=== PATIENT | female | born 1945 | race Caucasian/White ===

== ENCOUNTER 2024-11-18 10:37 | Outpatient (AMB) | payer OTHER, SELFPAY ==
--- NOTE | 2024-11-18 10:40 | MHC.PC.OV ---
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 Had a tick bite on left thigh in [place] 4 days ago. Went to urgent care and was put on a two day course of Doxycycline. Inspector Casing Required: No Allergies aromacin Allergy (Unknown, Uncoded 11/18/24 10:44) affects liver function Medication List - Last Reconciled 11/18/24 by Perla Nuñez PA-C clobetasol topical hydroxyzine HCl mg PO venlafaxine ER 75 mg PO DAILY venlafaxine ER 37.5 mg PO DAILY Tobacco use date assessed: 11/18/24 Fall risk assessment: 1 Fall in past year (fell 5 months ago) Last assessed Fall Risk: 11/18/24 Dental Screening Dental Screen Date: 11/18/24 Did you have a dental visit in the last 12 months?: Yes Did you have a dental problem in the last 6 months where you did not have access to dental care?: No Was dental information given to patient?: Patient has dentist HPI 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 She is transferring from [place]. She reports a significant past medical history of anxiety, depression, history of breast cancer, osteoporosis, hyperlipidemia, OAB, psoriasis, history of BCC CV: Blood pressure today in the office is 122/76. She is diet controlled with her cholesterol. Heme/Onc: History of right breast cancer s/p lumpectomy and radiation 1997 (took tamoxifen) and recurrence in left breast in 2014 s/p lumpectomy and radiation. She is BRCA negative. She follows with Dr. Kirkland but has not seen her in 2 years. She was doing annual MRIs and mammograms. She states that she has not had an MRI in about a year and a half. She states that she was supposed to follow up with her breast surgeon but did not and thought that it was an a big deal but maybe now would like to get back to doing MRIs. She has not noticed any breast changes. Endo: Has osteoporosis with a history of a T12 compression fracture. Never took medication. States that she would be open to talking with an sports physician regarding treatment. She is not sure if that is something she wants to do. Psych: On venlafaxine 112.5 mg and hydroxyzine 10 mg as needed. She says it feels like the venlafaxine is somewhat helpful but it could be better. She does suffer from a lot of generalized anxiety and thinks that she could increase the dosage. In the past she tried sertraline but found this ineffective. No SI/HI. Derm: Follows with [facility]. On clobetasol as needed. -tick bite 11/12 noted the tick on left inner thigh. She states that it was imbedded and she knows that it was on for longer than 24 hours. She pulled it out with a pair of tweezers with her 's assistance. She then went to urgent care and [place] and was prescribed doxycycline 200 mg. She states that over the weekend on Saturday she noticed that the area surrounding the bite became red and tender. She states that it is circular and it seems like it has grown in size. She says that there is a center scab but it is a little uncomfortable she pushes. No fevers or chills. No weakness, numbness or tingling. No swollen joints. MSK: She does complain today of bilateral hand pain and arthritis. She states it looks like she has arthritis in her knuckles and at times her hands feel stiff. She arthritis. A few years ago she went to the arthritis treatment center she says that they took pictures of her hands but they did not tell her what the results were. She states that they made it sound like she possibly does not have psoriatic arthritis but when she went to the urgent care recently for the tick bite the practitioner asked her about her psoriatic arthritis. She just wants to make sure that there are no significant changes to her hands. Colonoscopy: Due in 2026 Mammo: Due in February 2025 Band Manager: states it has been years Bone density: Due this year. Family history: Has a history of colon cancer. [facility] Medical History (Updated 11/18/24 @ 14:06 by Perla Nuñez PA-C) History of breast cancer Family History (Updated 11/18/24 @ 10:56 by Estelle Humphrey CMA) Paternal Aunt Alcoholism Other FH: mental illness Social History (Updated 11/18/24 @ 10:56 by Estelle Humphrey [facility]) Housing: House Alcohol intake: current Patient Tobacco Use Status: Former Tobacco user (only smoked for a week) e-Cigarette/Vaping Use: Never Used service: No Cognitive needs: Yes (forgetful) Hearing needs: No Vision needs: Yes (glasses) Questionnaire PHQ-9 Over the last 2 weeks, how often have you been bothered by any of the following problems? 1. Little interest or pleasure in doing things: more than half the days 2. Feeling down, depressed, or hopeless: more than half the days 3. Trouble falling or staying asleep, or sleeping too much: not at all 4. Feeling tired or having little energy: not at all 5. Poor appetite or overeating: not at all 6. Feeling bad about yourself - or that you are a failure or have let yourself or your family down: more than half the days 7. Trouble concentrating on things, such as reading the newspaper or watching television: not at all 8. Moving or speaking so slowly that other people could have noticed. Or the opposite - being so fidgety or restless that you have been moving around a lot more than usual: not at all 9. Thoughts that you would be better off or of hurting yourself in some way: not at all Total score: 6 Depression Screening Interpretation: Positive Depression Screening Follow-up: Existing condition, In treatment and Follow-up Visit Requested Depression Screening Done: Yes 36898 - PHQ-9 Billing: Yes Source: Developed by Drs. Iban Briceño, Keyana Le, Abhilash Anaya and colleagues, with an educational michelle from [employer]. Thrive Questionnaire Date Thrive assessed: 11/18/24 I am a: Patient What is your living situation today?: I have a steady place to live Within the past 12 months, did the food you bought not last and you didn't have the money to get more?: Never true Within the past 12 months, did you worry whether your food would run out before you got money to buy more?: Never true Do you have trouble paying for medicines?: No Do you have trouble getting transportation to medical appointments?: No Do you have trouble paying your heating and electricity bill?: No Do you have trouble taking care of your child, family member or friend?: No Do you have trouble with day-to-day activities such as bathing, preparing meals, shopping, managing finances, etc.?: No Are you currently unemployed and looking for a job?: No Are you interested in more education?: Yes Please select the resources that you would like help with: Education Currently or been in a relationship where the following occur: No concerns reported THRIVE Score: 0 AUDIT C Alcohol Use Questionnaire (AUDIT-C) 1. How often do you have a drink containing alcohol?: 2-3 times a week 2. How many drinks containing alcohol do you have on a typical day when you are drinking?: 1 or 2 3. How often do you have six or more drinks on one occasion?: Never Total Score: 3 SHERICE-7 AMB Questionnaire SHERICE-7 Date SHERICE - 7 assessed: 11/18/24 Feeling nervous, anxious, or on edge: 2 = More than half the days Not being able to stop or control worryin = More than half the days Worrying too much about different things: 1 = Several days Trouble relaxin = Several days Being so restless that it is hard to sit still: 1 = Several days Becoming easily annoyed or irritable: 1 = Several days Feeling afraid as if something awful might happen: 1 = Several days Total SHERICE-7 score (0-4 normal; 5-9 mild; 10-14 moderate; 15-21 severe): 9 Source: Developed by Drs. Iban Briceño, Keyana Le, Abhilash Anaya and colleagues, with an educational michelle from [employer]. SHERICE-7 Assessment Billing SHERICE-7 Assessment Tool: SHERICE-7 Assessment 35132 Physical exam (Primary Care) Vital Signs: Last Vital Signs Temp 98.4 F 11/18/24 10:48 Pulse 98 11/18/24 10:48 Resp 14 11/18/24 10:48 BP 122/76 11/18/24 10:48 Pulse Ox 98 11/18/24 10:48 Oxygen Delivery Method Room Air 11/18/24 10:48 BMI result Body Mass Index 24.5 Tobacco/Smoking Status: Tobacco use Status Tobacco use date assessed 11/18/24 11/18/24 10:48 Patient Tobacco Use Status Former Tobacco user (only 11/18/24 10:56 smoked for a week) e-Cigarette/Vaping Use Never Used 11/18/24 10:56 PHQ-9: PHQ-9 Score PHQ-9: Total score 6 11/18/24 10:49 Depression Screening Interpretation: Positive Depression Screening Follow-up: Existing condition, In treatment and Follow-up Visit Requested Thrive Assessment: Date of Thrive Assessment Date Thrive assessed 11/18/24 11/18/24 10:56 Currently or been in a relationship where the following occur: No concerns reported Const Orientation/consciousness: patient oriented x3 HENMT Ears: hearing grossly normal bilaterally Neck Thyroid: Thyroid normal Lymphatic: no lymphadenopathy noted Resp Auscultation: clear to auscultation bilaterally Cardio Rate: regular rate Rhythm: regular rhythm Heart sounds: S1 normal heart sound present and S2 normal heart sound present GI Inspection: Yes normal to inspection Palpation (GI): Soft to palpation and Other GI palpation findings present (nontender, no cva tenderness) Auscultation: normoactive bowel sounds Rectal Exam - Female: deferred Skin Other: There is a 4 cm x 3 cm oval, erythematous rash with a scab in the center noted on her left medial upper leg. It is slightly tender to palpation. It is well demarcated. Neuro General: patient oriented x3, gait normal and no focal motor deficits Coding Level of Care Code New Pt Level 4 (13592) Complex EM visit Add On G2211 Diagnoses Major depression, recurrent, chronic F33.9 Generalized anxiety disorder F41.1 Osteoporosis M81.0 HLD (hyperlipidemia) E78.5 History of bilateral breast cancer Z85.3 Tick bite of left thigh with infection S70.362A; L08.9; W57.XXXA Psoriasis L40.9 Bilateral hand pain M79.641; M79.642 Additional Codes SHERICE-7 Assessment Billing - SHERICE-7 Assessment Tool: SHERICE-7 Assessment 27045 ([id number]) PHQ-9 - 98410 - PHQ-9 Billing: Yes ([id number]) Assessment & Plan Assessment & Plan (1) Major depression, recurrent, chronic: Code(s): F33.9 - Major depressive disorder, recurrent, unspecified Category: Medical Plan: Increase venlafaxine to 150 mg daily. Return in a couple months to be reassessed. She will call me sooner if anything worsens or changes regarding anxiety or depression. (2) Generalized anxiety disorder: Code(s): F41.1 - Generalized anxiety disorder Category: Medical Plan: As above. (3) Osteoporosis: Code(s): M81.0 - Age-related osteoporosis without current pathological fracture Category: Medical Plan: Bone density ordered (4) HLD (hyperlipidemia): Code(s): E78.5 - Hyperlipidemia, unspecified Category: Medical Plan: Lipids ordered. We will follow up pending test results (5) History of bilateral breast cancer: Code(s): Z85.3 - Personal history of malignant neoplasm of breast Category: Medical Plan: Breast MRI ordered. Mammogram ordered. She prefers these to be done at [place] given that this is where she was previously going. (6) Tick bite of left thigh with infection: Code(s): S70.362A - Insect bite (nonvenomous), left thigh, initial encounter; L08.9 - Local infection of the skin and subcutaneous tissue, unspecified; W57.XXXA - Bitten or stung by nonvenomous insect and other nonvenomous arthropods, initial encounter Category: Medical Plan: Doxycycline x2 weeks. Discussed risks and benefits and adverse effects of this medication including GI upset, photosensitivity rash in yeast infection. She will contact me if anything worsens or changes. She did take a picture today of the tick bite on her leg and we did measure this. She will let me know if it changes in size or fails to respond. (7) Psoriasis: Code(s): L40.9 - Psoriasis, unspecified Category: Medical Plan: Follows with new [facility]. Previously this was managed with by her PCP. She needs a refill of the clobetasol cream in the next couple of months and states that she will contact me with her dosage. (8) Bilateral hand pain: Code(s): M79.641 - Pain in right hand; M79.642 - Pain in left hand Category: Medical Plan: X-rays ordered. Plan xrays of hands at [place] [facility] and mammogram will be done at [facility] (if insurance authorizes) they will call to book you bone density they will call you to schedule labs- no appointment needed, come in around mid January to complete, they open at 7:30 Start doxy for tick bite, call me if leg gets worse increase venlafaxine to 150 mg short term follow up end of summer Orders: Orders Complete Blood Count Auto Diff Today E78.5 - Hyperlipidemia, unspecified, F33.9 - Major depressive disorder, recurrent, unspecified, F41.1 - Generalized anxiety disorder, M81.0 - Age-related osteoporosis without current pathological fracture, Z85.3 - Personal history of malignant neoplasm of breast Comprehensive [place]. Panel Fast Today E78.5 - Hyperlipidemia, unspecified, F33.9 - Major depressive disorder, recurrent, unspecified, F41.1 - Generalized anxiety disorder, M81.0 - Age-related osteoporosis without current pathological fracture, Z85.3 - Personal history of malignant neoplasm of breast TSH reflex Free T4 Today E78.5 - Hyperlipidemia, unspecified, F33.9 - Major depressive disorder, recurrent, unspecified, F41.1 - Generalized anxiety disorder, M81.0 - Age-related osteoporosis without current pathological fracture, Z85.3 - Personal history of malignant neoplasm of breast Hemoglobin A1c Today E78.5 - Hyperlipidemia, unspecified, F33.9 - Major depressive disorder, recurrent, unspecified, F41.1 - Generalized anxiety disorder, M81.0 - Age-related osteoporosis without current pathological fracture, R73.01 - Impaired fasting glucose, Z85.3 - Personal history of malignant neoplasm of breast UA CC w/rflx Micro + Cult Today E78.5 - Hyperlipidemia, unspecified, F33.9 - Major depressive disorder, recurrent, unspecified, F41.1 - Generalized anxiety disorder, M81.0 - Age-related osteoporosis without current pathological fracture, Z13.220 - Encounter for screening for lipoid disorders, Z85.3 - Personal history of malignant neoplasm of breast Vitamin D 25-OH Total Today E78.5 - Hyperlipidemia, unspecified, F33.9 - Major depressive disorder, recurrent, unspecified, F41.1 - Generalized anxiety disorder, M81.0 - Age-related osteoporosis without current pathological fracture, Z85.3 - Personal history of malignant neoplasm of breast XR DEXA axial skeleton Today M81.0 - Age-related osteoporosis without current pathological fracture MR breast BI wo con Today Z85.3 - Personal history of malignant neoplasm of breast MM screening mammo BI Today Z12.31 - Encounter for screening mammogram for malignant neoplasm of breast, Z85.3 - Personal history of malignant neoplasm of breast Lipid Panel Today E78.5 - Hyperlipidemia, unspecified, F33.9 - Major depressive disorder, recurrent, unspecified, F41.1 - Generalized anxiety disorder, M81.0 - Age-related osteoporosis without current pathological fracture, Z85.3 - Personal history of malignant neoplasm of breast Microalbumin, Random (w Creat) Today E78.5 - Hyperlipidemia, unspecified, F33.9 - Major depressive disorder, recurrent, unspecified, F41.1 - Generalized anxiety disorder, M81.0 - Age-related osteoporosis without current pathological fracture, Z85.3 - Personal history of malignant neoplasm of breast Lyme IgG/IgM w/reflex to WB Today L08.9 - Local infection of the skin and subcutaneous tissue, unspecified, S70.362A - Insect bite (nonvenomous), left thigh, initial encounter, W57.XXXA - Bitten or stung by nonvenomous insect and other nonvenomous arthropods, initial encounter XR Hand Bilat min 3v Today M79.641 - Pain in right hand, M79.642 - Pain in left hand Medications: New doxycycline hyclate 100 mg PO BID 28 tabs 0RF venlafaxine ER 150 mg PO DAILY 90 caps 3RF
[2024-11-18 10:48] VITALS: BP 122/76; PULSE 98; RESP 14; TEMP 36.9; O2SAT 98; BMI 24.5
--- OUTSIDE RECORDS SUMMARY | 2024-11-18 12:05 | XMS_ITS | Clinical Summary ---
Author Organization [facility] Address [address] [place] [address] Care Team Providers Care Studio Couch Frame Builder Name Role Phone Unavailable Primary Care Provider Unavailabl e Surgical History Surgery Date Site/Laterality Comments OTHER SURGICAL HISTORY 1999 PROCEDURE: HISTORICAL CA BASAL CELL; COMMENT: chest wall CATARACT EXTRACTION 08/2012 PROCEDURE: HISTORICAL CATARACT REMOVAL OTHER SURGICAL HISTORY 1997 PROCEDURE: HISTORICAL D&C COLONOSCOPY 01/22/2000 PROCEDURE: HISTORICAL COLONOSCOPY; COMMENT: Dr. Castro; negative exam. COLONOSCOPY 07/18/2009 PROCEDURE: HISTORICAL COLONOSCOPY; COMMENT: Normal COLONOSCOPY 02/21/2017 PROCEDURE: HISTORICAL COLONOSCOPY; COMMENT: no polyps BREAST BIOPSY 01/30/2017 Right PROCEDURE: BX BREAST; PERC NEEDLE CORE W/IMAG GUID BREAST BIOPSY 01/25/2015 Right PROCEDURE: BX BREAST; PERC NEEDLE CORE W/IMAG GUID; COMMENT: DCIS MRI bx BREAST BIOPSY 1997 Left PROCEDURE: WI BX BREAST W/DEVICE 1ST LESION ULTRASOUND GUID; COMMENT: ca BREAST LUMPECTOMY 1997, 2003 benign biopsy Bilateral PROCEDURE: HISTORICAL BREAST LUMPECTOMY; COMMENT: 1997 ORIGINAL BREAST CAnCER TREATMENT left rt lumpectomy w rt 2015 BREAST LUMPECTOMY 02/17/2015 Right PROCEDURE: HISTORICAL BREAST LUMPECTOMY; COMMENT: DCIS COLONOSCOPY 03/02/2020 PROCEDURE: HISTORICAL COLONOSCOPY; COMMENT: Diverticulosis; no polyps. Repeat in 5 years. Medical History Medical History Date Comments Backache, unspecified DX:Backach e, unspecified; COMMENT: scoliosis Other psoriasis DX:Other psorias is Closed fracture of other bon e of wrist DX:Closed fracture of other bone of wrist; COMMENT: right/left Herpes simplex with unspecif ied complication DX:Herpes simplex with unspe cified complication; COMMENT: Genital Family history of malignant neoplasm of gastrointestinal tract 11/16/2008 DX:Family history of maligna nt neoplasm of gastrointestinal tract Historical Medical DX 03/26/2008 DX:Basal c ell carcinoma of the skin Bunion 03/26/2011 DX:Bunion Anxiety state, unspecified DX:An xiety state, unspecified; COMMENT: fluoxitine 20 mg Cataract 10/11/2011 DX:Cataract Ankle fracture, right 1999 DX:Ankle f racture, right Herniated disc DX:Herniated dis c; COMMENT: pt thinks L5 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 History of breast cancer 10/25/2015 DX:Hist ory of breast cancer History of basal cell carcin deangelo of skin 03/26/2008 DX:History of basal cell car cinoma of skin Malignant neoplasm of breast (female), unspecified site 1997 DX:Malignant neoplasm of br east (female), unspecified site; COMMENT: left side Malignant melanoma of breast (CMS/HCC V24, CMS/HCC V28) 2014 DX:Malignant melanoma of louisa ast ([facility]); COMMENT: rt Osteoporosis DX:Osteoporosis Diarrhea DX:Diarrhea Fecal incontinence DX:Fecal inco ntinence Fecal urgency DX:Fecal urgency Family history of colon canc er in mother DX:Family history of colon c ancer in mother Covid DX:COVID Colitis DX:Colitis Fecal urgency DX:Fecal urgency Sore throat DX:Sore throat History of colitis DX:History of colitis Family History Medical History Relation Name Comments Prostate cancer Brother 1 Jose Foster Arthritis Brother 2 Iban Foster osteo Prostate cancer Brother 2 Iban Foster Heart attack Father Prostate cancer Father Alzheimer's disease Mother Colon cancer Mother dx age 70 Other: Diabetes type 2 Mother Breast cancer Mother's side m cousin 30s maternal firs t cousin Pancreatic cancer Paternal Grandfather Prostate cancer Paternal Grandfather Alzheimer's disease Paternal Grandmother at 93 Ovarian cancer Neg Hx Uterine cancer Neg Hx Relation Name Status Comments Brother 1 Jose Foster (Age 70) Brother 2 Iban Foster Alive hip surgery Father (Age 81) Sepsis, he art problem, prostrate cancer Maternal Grandfather [employer] g[employer] g Maternal Grandmother [employer] gonzales g Mother dementia 85, co rubén cancer, dm Mother's side m cousin 30s Other Paternal Grandfather (Age 60s) H eart disease, Pancreatic cancer Paternal Grandmother (Age 90s) d ementia Sister Alive Knee replacemen t; arthitits; hip replacement Son Alive Jeff - Health y x seborrhea and anxiety Social History Tobacco Use Types Packs/Day Years Used Date Smoking Tobacco: Never Smokeless Tobacco: Never Alcohol Use Standard Drinks/Week Comments Yes 1 (1 standard drink = 0.6 oz pur e alcohol) Comments Unknown Sex and Gender Information Value Date Recorded Sex Assigned at Not on file Legal Sex Female 6:55 PM EST Gender Identity Not on file Sexual Orientation Not on file Obstetrics History Last Filed Vital Signs Vital Sign Reading Time Taken Comments Blood Pressure 120/82 04/09/2024 9:30 AM EDT Pulse 80 04/09/2024 9:30 AM EDT Temperature - - Respiratory Rate - - Oxygen Saturation - - Inhaled Oxygen Concentration - - Weight 62.9 kg (138 lb 9.6 oz) 04/09/2024 9:30 A M EDT Height 161.3 cm (5' 3.5 ) 04/09/2024 9:30 AM EDT Body Mass Index 24.17 04/09/2024 9:30 AM EDT Plan of Treatment Upcoming Encounters Date Type Department Care Team (Late st Contact Info) Description 03/18/2025 9:00 AM EDT Appointment Radiology Department [address] [phone] Health Maintenance Due Date Last Done Comments RSV Immunization Adult Patients (1 - 1-dose 75+ series) 2021 Cholesterol Screening (Lipid Panel) 05/19/2022 Colorectal Cancer Screening: Colonoscopy 05/19/2022 Depression Screening 05/19/2022 Falls Risk Assessment 05/19/2022 Hepatitis C Screening 05/19/2022 Social Influencers of Health Screening 05/19/2022 COVID-19 Vaccine ( season) 2024 02/28/2024, 02/28/2022, 09/22/2021, Additional history exists Influenza Vaccine (Season Ended) 2025 03/06/2023, 02/28/2022, 02/22/2021, Additional history exists DTaP,Tdap,and Td Vaccines (4 - Td or Tdap) 01/05/2030 01/06/2020, 09/13/2009, 08/20/2000 Osteoporosis Screening (Bone Density Screening) 10/21/2033 10/22/2023, 10/22/2023, 08/16/2022, Additional history exists Pneumococcal Vaccine: 50+ Years Completed 10/25/2015, 05/12/2012 Zoster Vaccines Completed 12/07/2020, 09/09, 01/17/2012 HIB Vaccines Aged Out No longer eligi ble based on patient's age to complete this topic HPV Vaccines Aged Out No longer eligi ble based on patient's age to complete this topic Hepatitis A Vaccines Aged Out No long er eligible based on patient's age to complete this topic Hepatitis B Vaccines Aged Out No long er eligible based on patient's age to complete this topic IPV Vaccines Aged Out No longer eligi ble based on patient's age to complete this topic MMR Vaccines Aged Out No longer eligi ble based on patient's age to complete this topic Meningococcal ACWY Vaccine Aged Out N o longer eligible based on patient's age to complete this topic Meningococcal B Vaccine Aged Out No l onger eligible based on patient's age to complete this topic RSV Immunization Patients Under 20 months Aged Out No longer eligible based on patient's age to complete this topic Varicella Vaccines Aged Out No longer eligible based on patient's age to complete this topic Procedures Procedure Name Priority Date/Time Associated Diagnosis Comments DXA BONE DENSITY STUDY 1+ SITS AXIAL SKEL Routine 10/22/2023 10:07 AM EDT Encounter for general adult medical examination without abnormal findings from Last 3 Months or Most Recently Relevant to Health Maintenance Results * DXA BONE DENSITY STUDY 1+ SITS AXIAL SKEL (10/22/2023 10:07 AM EDT) Anatomical Region Laterality Modality Bone Densitometr y 09/04/2023 11:4 1 AM EDT Narrative 10/23/2023 9:10 AM EDT BONE DENSITY ? Lumbar Spine T-score is -2.2 ?? (SD relative to 20-29 y/o adult) Z-score is -0.3 ??(SD relative to age matched peers) This is consistent with osteopeniaby criteria defined by the WHO. Left Hip T-score is -2.5 Z-score is -0.3 This is consistent with osteoporosis by criteria defined by the WHO. Comparison exam(s): no statistically significant change in the bone density of the hip when compared to most recent bone density examination ?? Confidence level is +/-95%. Impression: Based on the World Health Organization criteria, Lena Gordon should be classified as having osteoporosis. The [facility] Department of Internal Medicine recommends using National Osteoporosis Foundation (NOF) guidelines in treatment decisions related to osteoporosis. NOF guidelines suggest considering treatment for postmenopausal women and men aged 50 or older presenting with the following: History of hip or vertebral fracture. T-score less than or equal to -2.5 (DXA) at the femoral neck, total hip, or spine, after appropriate evaluation to exclude secondary causes. Low bone mass (T-score between -1.0 and -2.5 at the femoral neck or spine) AND a 10-year probability of a hip fracture greater than or equal to 3% OR a 10-year probability of a major osteoporosis-related fracture greater than or equal to 20% based on the [place]-adapted WHO algorithm Please note that all treatment decisions require clinical judgment and consideration of individual patient factors, including patient preferences, co-morbidities, previous drug use, risk factors not captured in the FRAX model (e.g., frailty, falls, vitamin D deficiency, increased bone turnover, interval significant decline in bone density) and possible under- or over-estimation of fracture risk by FRAX. Procedure Note Sapna Nelson MD - 01/27/2024 BONE DENSITY Lumbar Spine T-score is -2.2 (SD relative to 20-29 y/o adult) Z-score is -0.3 (SD relative to age matched peers) This is consistent with osteopeniaby criteria defined by the WHO. Left Hip T-score is -2.5 Z-score is -0.3 This is consistent with osteoporosis by criteria defined by the WHO. Comparison exam(s): no statistically significant change in the bonedensity of the hip when compared to most recent bone density examination Confidence level is +/-95%. Impression: Based on the World Health Organization criteria, Lena Gordon should beclassified as having osteoporosis. The [facility] Department of Internal Medicine recommendsusing National Osteoporosis Foundation (NOF) guidelines in treatmentdecisions related to osteoporosis. NOF guidelines suggest consideringtreatment for postmenopausal women and men aged 50 or older presentingwith the following: History of hip or vertebral fracture. T-score less than or equal to -2.5 (DXA) at the femoral neck, total hip,or spine, after appropriate evaluation to exclude secondary causes. Low bone mass (T-score between -1.0 and -2.5 at the femoral neck or spine)AND a 10-year probability of a hip fracture greater than or equal to 3% ORa 10-year probability of a major osteoporosis-related fracture greaterthan or equal to 20% based on the [place]-adapted WHO algorithm Please note that all treatment decisions require clinical judgment andconsideration of individual patient factors, including patientpreferences, co-morbidities, previous drug use, risk factors not capturedin the FRAX model (e.g., frailty, falls, vitamin D deficiency, increasedbone turnover, interval significant decline in bone density) and possibleunder- or over-estimation of fracture risk by FRAX. Nahed Lopez DO IMG DXA PROCEDURES Final Result from Last 3 Months or Most Recently Relevant to Health Maintenance
== END 2024-11-18 11:45 | disposition home or self-care (01) ==
LOC: HO.HMCFM 10:38
PROVIDERS: PCP Physician Assistant; Visit Provider Physician Assistant
DX: F33.9 Major depressive disorder, recurrent, unspecified (principal); F41.1 Generalized anxiety disorder; M81.0 Age-related osteoporosis without current pathological fracture; E78.5 Hyperlipidemia, unspecified; Z85.3 Personal history of malignant neoplasm of breast; S70.362A Insect bite (nonvenomous), left thigh, initial encounter; L08.9 Local infection of the skin and subcutaneous tissue, unspecified; W57.XXXA Bitten or stung by nonvenomous insect and other nonvenomous arthropods, initial encounter; L40.9 Psoriasis, unspecified; M79.641 Pain in right hand; M79.642 Pain in left hand

== ENCOUNTER → 2024-11-18 10:37 | Outpatient (BNVA) | payer OTHER, SELFPAY | PROVIDERS: PCP Physician Assistant; Visit Provider Physician Assistant | DX: M81.0 Age-related osteoporosis without current pathological fracture (principal); E78.5 Hyperlipidemia, unspecified; N32.81 Overactive bladder; L40.9 Psoriasis, unspecified; M79.642 Pain in left hand; M79.641 Pain in right hand; F33.9 Major depressive disorder, recurrent, unspecified; F41.1 Generalized anxiety disorder; Z85.3 Personal history of malignant neoplasm of breast; S70.362A Insect bite (nonvenomous), left thigh, initial encounter; L08.9 Local infection of the skin and subcutaneous tissue, unspecified; W57.XXXA Bitten or stung by nonvenomous insect and other nonvenomous arthropods, initial encounter; Y93.9 Activity, unspecified; Y92.9 Unspecified place or not applicable; Y99.9 Unspecified external cause status | CPT/HCPCS: 96127 ==

== ENCOUNTER 2024-11-25 08:09 | Outpatient (REF) | payer OTHER, SELFPAY ==
--- OUTSIDE RECORDS SUMMARY | 2024-11-25 08:23 | XMS_ITS | Clinical Summary ---
Author Organization [email or web address] [facility] Address [address] [place] [address] Care Team Providers Care Regrinder Operator Name Role Phone Lena Tracey MD Primary Care Provider Surgical History Surgery Date Site/Laterality Comments OTHER [...] MRI bx BREAST BIOPSY 1997 Left PROCEDURE: [place] BX BREAST W/DEVICE 1ST LESION ULTRASOUND GUID; [...] V28) 2014 DX:Malignant melanoma of louisa ast ([facility] COMMENT: rt Osteoporosis DX:Osteoporosis Diarrhea DX:Diarrhea Fecal [...] art problem, prostrate cancer Maternal Grandfather [employer] Maternal Grandmother [employer] Mother dementia 85, co rubén cancer, dm [...] 03/18/2025 9:00 AM EDT Appointment Radiology Department [address] [phone] Health Maintenance Due Date Last Done Comments [...] Narrative 10/23/2023 9:10 AM EDT BONE DENSITY Lumbar Spine T-score is -2.2 [...] should be classified as having osteoporosis. The [facility] Department of Internal Medicine recommends using National [...] Gordon should beclassified as having osteoporosis. The [facility] Department of Internal Medicine recommendsusing National Osteoporosis [...] fracture risk by FRAX. Nahed Lopez DO [facility] DXA PROCEDURES Final Result from Last 3 Months or Most Recently Relevant to Health Maintenance Care Teams Regrinder Operator Relationship Specialty Start Date End Date Lena Tracey MD [address] [place] [id number] PCP - General Internal Medicine 11/20/24
[2024-11-25 11:40] LABS: Appearance Urine Clear; Color Urine Yellow; Glucose Urine UA Negative (Negative); Leukocyte Esterase Urine Negative (Negative); Nitrite Urine Negative (Negative); Urine Blood Negative (Negative); Urine Ketones Negative (Negative); Urine Protein Negative (Neg-Trace)
[2024-11-25 11:41] LABS: MANUAL DIFF FLAG NO
[2024-11-25 11:52] LABS: Basophils Absolute Auto 0.1 X10*3/uL (0.0-0.2); Basophils Percent Auto 1.3 % (0-2); Eosinophils Absolute Auto 0.2 X10*3/uL (0.0-0.4); Eosinophils Percent Auto 3.6 % (0-4); Hematocrit 40.1 % (37.0-47.0); Hemoglobin 13.4 g/dl (12.0-16.0); Imm Gran Abs Auto 0.03 X10*3/uL (0.00-0.03); Imm Gran Pct Auto 0.5 % (0.0-0.4); Lymphocytes Absolute Auto 2.2 X10*3/uL (1.2-4.9); Lymphocytes Percent Auto 35.9 % (20-40); Mean Corpuscular HGB Conc 33.4 g/dl (31.0-35.0); Mean Corpuscular Hemoglobin 30.8 pg (27.0-33.0); Mean Corpuscular Volume 92.2 fL (80.0-98.0); Mean Platelet Volume 12.1 fL (9.4-12.3); Monocytes Absolute Auto 0.7 X10*3/uL (0.1-1.2); Neutrophils Absolute Auto 2.8 x10*3/uL (2.0-8.3); Neutrophils Percent Auto 46.7 % (45-73); Platelet Count 260 X10*3/uL (160-400); Red Blood Count 4.35 X10*6/uL (4.20-5.50); Red Cell Distribution Width 13.5 % (11.0-16.0); White Blood Count 6.1 X10*3/uL (4.8-10.8)
[2024-11-25 11:57] LABS: Estimated Average Glucose 114 mg/dL; Hemoglobin A1c % 5.6 % (<6.0); Total Hemoglobin (HGBA1C) 3496.8795 umol/L
[2024-11-25 12:10] LABS: Alanine Aminotransferase 21 U/L (0-31); Albumin Level 4.3 g/dL (3.5-5.0); Alkaline Phosphatase 60 U/L (39-117); Anion Gap 9 (12-20); Aspartate Amino Transferase 25 U/L (5-31); Bilirubin Total 0.6 mg/dL (0.0-1.0); Blood Urea Nitrogen 20 mg/dL (9-16); Calcium 9.6 mg/dL (8.4-10.2); Carbon Dioxide 28 mmol/L (22-29); Chloride 107 mmol/L (96-108); Cholesterol 248 mg/dL (<200); Estimated Glomerular Filt Rate > 60; Glucose Fasting 95 mg/dL (60-99); HDL Cholesterol 87 mg/dL (>40); LDL Cholesterol Calculated 144 mg/dL (<100); Potassium 3.9 mmol/L (3.3-5.1); Sodium 140 mmol/L (135-145); Total Protein 7.3 g/dL (6.5-8.0); Triglycerides 86 mg/dL (<150)
[2024-11-25 12:18] LABS: Microalbumin Urine < 5.0 mg/L
[2024-11-25 12:30] LABS: TSH reflex Free T4 1.54 uIU/mL (0.32-4.0); Vitamin D 25-OH Total 69.7 ng/mL (>30)
[2024-11-26 09:23] LABS: Lyme Abs Screen <0.90 index
== END 2024-11-25 08:10 | disposition home or self-care (01) ==
LOC: HO.WFDLDS 08:09
PROVIDERS: Visit Provider Physician Assistant
DX: S70.362A Insect bite (nonvenomous), left thigh, initial encounter (principal); Z13.220 Encounter for screening for lipoid disorders; R73.01 Impaired fasting glucose; L08.9 Local infection of the skin and subcutaneous tissue, unspecified; F33.9 Major depressive disorder, recurrent, unspecified; F41.1 Generalized anxiety disorder; M81.0 Age-related osteoporosis without current pathological fracture; E78.5 Hyperlipidemia, unspecified; Z85.3 Personal history of malignant neoplasm of breast; I10 Essential (primary) hypertension
CPT/HCPCS: 36415; 80053; 80061; 81003; 82043; 82306; 82570; 83036; 84443; 85025; 86617; 86618

== ENCOUNTER 2024-12-24 09:48 | Outpatient (REF) | payer OTHER, SELFPAY ==
--- NOTE | ~2024-12-24 | MM_ITS ---
EXAMINATION: DXA BONE DENSITY AXIAL HISTORY: M81.0 - Age-related osteoporosis without current pathological fracture TECHNIQUE: [employer] Dual energy absorptiometry (DEXA) of the lumbar spine, total left hip, and femoral neck was performed. COMPARISON: There are no prior studies for comparison. FINDINGS: The bone mineral density of the lumbar spine is 0.914 g/cm2, corresponding to a T-score of -2.1, and a Z-score of -0.2. This is indicative of osteopenia. The bone mineral density of the left total hip is 0.799 g/cm2, corresponding to a T-score of -1.7, and a Z-score of 0.3. This is indicative of osteopenia. The bone mineral density of the left femoral neck is 0.734 g/cm2, corresponding to a T-score of -2.2, and a Z-score of 0.0. This is indicative of osteopenia. FRACTURE RISK: The FRAX index suggests a risk of major osteoporotic fracture of 29.7%, and of hip fracture 19.6%. MM/XR DEXA axial skeleton IMPRESSION: Based on bone mineral density, and according to World Health Organization (WHO) criteria, the diagnosis is consistent with osteopenia. Statistically, 68% of repeat scans fall within 1 SD (+/- 0.010 g/cm2 for AP spine L1-L4) and 1 SD (+/- 0.012 g/cm2 for femur total) FRAX is a trademark of the [employer]'s [place] for Metabolic Bone Disease, a World Health Organization (WHO) Collaborating Center. Electronically signed by: Iban Mccoy MD 12/24/2024 10:40 AM EDT
--- NOTE | ~2024-12-24 | XR_ITS ---
EXAMINATION: XR KNEE, RIGHT CLINICAL INFORMATION: M25.561 - Pain in right knee COMPARISON: None available. TECHNIQUE: Two views of the right knee. FINDINGS: No fracture, dislocation, or suspicious bone lesion. There is minimal varus angulation of the joint. Moderate to severe medial compartment joint space narrowing and spurring is present. There are moderate changes in the patellofemoral and lateral compartments. There is a moderate to large suprapatellar joint effusion. There is no soft tissue abnormality. XR/XR knee RT 2V IMPRESSION: 1. No acute bony abnormalities. 2. Tricompartmental osteoarthrosis, moderate to severe in the medial compartment. 3. Moderate to large-sized suprapatellar joint effusion. Electronically signed by: Andreas Coe MD 12/24/2024 12:19 PM EDT
--- NOTE | ~2024-12-24 | XR_ITS ---
EXAMINATION: XR BILATERAL HIPS WITH AP PELVIS CLINICAL INFORMATION: M25.551 - Pain in right hip COMPARISON: None available. TECHNIQUE: AP and frog-leg lateral views of each hip were obtained. FINDINGS: RIGHT HIP: No fracture, dislocation, or suspicious bone lesion. Minimal degenerative arthritic changes in the right hip joint. Normal alignment. Normal femoral head contour without evidence of AVN. Minimal enthesopathic spurring of the right greater trochanter. No soft tissue abnormalities. LEFT HIP: No fracture, dislocation, or suspicious bone lesion. Minimal degenerative arthritic changes in the right hip joint. Normal alignment. Normal femoral head contour without evidence of AVN. Minimal enthesopathic spurring of the left greater trochanter. No soft tissue abnormalities. XR/XR hips PAUL min 3V IMPRESSION: 1. No acute bony abnormalities in either hip. 2. Minimal osteoarthritis in both hip joints. Electronically signed by: Andreas Coe MD 12/24/2024 12:00 PM EDT
--- NOTE | ~2024-12-24 | XR_ITS ---
Exam: Three-view bilateral hands TECHNIQUE: PA, oblique, and lateral x-rays upper extremities, bilateral INDICATION: Right hand pain COMPARISON: None FINDINGS: Right hand: There is moderate asymmetric narrowing of the second DIP joint with gull wing deformity and large marginal osteophytes. There is moderate severe narrowing of third DIP joint with large osteophytes. There is mild narrowing and small osteophytes involving the fourth PIP joint. There is mild asymmetric narrowing and small to moderate osteophytes along the margins of the fifth DIP joint. There is mild asymmetric narrowing and moderate osteophytes involving the second PIP joint. There are small marginal osteophytes involving the third and fifth PIP joints. Small marginal osteophytes are present involving the second metacarpophalangeal joint. Moderate osteophytes are present involving the IP and MCP joint of the thumb. There is also moderate narrowing, sclerosis, and osteophytes involving the first carpometacarpal joint. There is sclerosis and narrowing with osteophyte formation involving the scaphoid trapezium trapezoid joint. Left hand: There is bowing deformity and severe narrowing with marginal ossified involving the second third DIP joints. There is mild mild narrowing of the fourth and fifth DIP joints with minimal osteophyte formation. There is gull wing deformity and moderate osteophytes with asymmetric narrowing of the second PIP joint with ulnar deviation. There is mild narrowing and minimal osteophyte formation involving the fourth and fifth PIP joints. There is mild narrowing osteophytes involving the interphalangeal and thumb. There is severe narrowing with sclerosis and osteophytes involving the first carpal metacarpal joint. There is sclerosis and narrowing of the scaphoid trapezium trapezoid joint. XR/XR Hand Bilat min 3v IMPRESSION: Right: Moderate to severe osteoarthritis with erosive component involving the second and third DIP joints and second PIP joint. Left hand: Moderate severe osteoarthritis with erosive osteoarthritic component involving the second and third DIP joints and second PIP joint. Electronically signed by: Pancho Zapata MD 12/24/2024 12:37 PM EDT
--- OUTSIDE RECORDS SUMMARY | 2024-12-24 10:09 | XMS_ITS | Clinical Summary ---
Author Organization [facility] Address [address] [place] [address] Care Team Providers Care Detective Supervisor Name Role Phone Lena Tracey MD Primary Care Provider [phone] Surgical History Surgery Date Site/Laterality Comments OTHER [...] MRI bx BREAST BIOPSY 1997 Left PROCEDURE: [place] BX BREAST W/DEVICE 1ST LESION ULTRASOUND GUID; [...] V28) 2014 DX:Malignant melanoma of louisa ast ([facility]); COMMENT: rt Osteoporosis DX:Osteoporosis Diarrhea [...] 03/18/2025 9:00 AM EDT Appointment Radiology Department [address] [phone] Health Maintenance Due Date Last Done Comments RSV Immunization Adult Patients (1 - 1-dose 75+ series) 2021 Cholesterol Screening (Lipid Panel) 05/19/2022 Colorectal Cancer Screening: Colonoscopy 05/19/2022 Depression Screening 05/19/2022 Falls Risk Assessment 05/19/2022 Hepatitis C Screening 05/19/2022 Social Influencers of Health Screening 05/19/2022 COVID-19 Vaccine ( season) 2024 02/28/2024, 02/28/2022, 09/22/2021, Additional history exists Influenza Vaccine (#1) 2025 , 02/28/2022, 02/22/2021, Additional history exists DTaP,Tdap,and Td [...] should be classified as having osteoporosis. The [facility] Department of Internal Medicine recommends using [...] Gordon should beclassified as having osteoporosis. The [facility] Department of Internal Medicine recommendsusing National [...] fracture risk by FRAX. Nahed Lopez DO [facility] DXA PROCEDURES Final Result from Last 3 Months or Most Recently Relevant to Health Maintenance Care Teams Detective Supervisor Relationship Specialty Start Date End Date Lena Tracey MD [address] [place] [id number] PCP - General Internal Medicine 11/20/24
== END 2024-12-24 09:49 | disposition home or self-care (01) ==
LOC: HO.MAMMO 09:48
PROVIDERS: PCP Internal Medicine; Visit Provider Physician Assistant
DX: M81.0 Age-related osteoporosis without current pathological fracture (principal); M25.551 Pain in right hip; M25.552 Pain in left hip; M25.561 Pain in right knee; M25.562 Pain in left knee; M79.641 Pain in right hand; M79.642 Pain in left hand
CPT/HCPCS: 73130; 73522; 73560; 77080

== ENCOUNTER → 2024-12-24 10:00 | Outpatient (BNV) | payer OTHER, SELFPAY | PROVIDERS: PCP Internal Medicine; Visit Provider Radiology Diagnostic Radiology | DX: M81.0 Age-related osteoporosis without current pathological fracture (principal); M25.551 Pain in right hip; M19.041 Primary osteoarthritis, right hand; M19.042 Primary osteoarthritis, left hand; M17.11 Unilateral primary osteoarthritis, right knee; M25.461 Effusion, right knee | CPT/HCPCS: 73130; 73522; 73560; 77080 ==

== ENCOUNTER 2025-01-21 09:28 | Outpatient (AMB) | payer OTHER, SELFPAY ==
--- NOTE | 2025-01-21 09:34 | A.OFFPC_ITS ---
Vital Signs 01/21/25 09:39 Height 5 ft 3.19 in Weight 137 lb 6 oz BMI 24.2 BP 106/72 Blood Pressure Location Rt brachial Position Sitting Respiration 15 Pulse 86 Pulse Source Pulse Oximeter Temp 97.8 F Temp Source Temporal Artery Scan Pulse Oximetry (%) 94 Oxygen Delivery Method Room Air Intake Visit Reasons: labs, meds Intake Note: Lena presents in the office today to go over her labs and medications. Allergies aromacin Allergy (Unknown, Uncoded 01/21/25 09:37) affects liver function Medication List - Last Reconciled 01/21/25 by Perla Nuñez PA-C clobetasol 0.05% 1 appl topical BID PRN hydroxyzine HCl 10 mg PO Q4H PRN venlafaxine ER 225 mg PO BEDTIME Tobacco use date assessed: 01/21/25 Fall risk assessment: 1 Fall in past year Last assessed Fall Risk: 01/21/25 Dental Screening Dental Screen Date: 01/21/25 Did you have a dental visit in the last 12 months?: Yes Did you have a dental problem in the last 6 months where you did not have access to dental care?: No Was dental information given to patient?: Patient has dentist HPI labs, meds HPI Details Patient is a 79-year-old female who presents today to [facility]. She is transferring from [place]. She reports a significant past medical history of anxiety, depression, history of breast cancer, osteoporosis, hyperlipidemia, OAB, psoriasis, history of BCC CV: Blood pressure today in the office is 106/72. She is diet controlled with her cholesterol. Heme/Onc: History of right breast cancer s/p lumpectomy and radiation 1997 (took tamoxifen) and recurrence in left breast in 2014 s/p lumpectomy and radiation. She is BRCA negative. She is supposed to be following with mammograms and MRIs. Endo: Has osteoporosis with a history of a T12 compression fracture. Never took medication. States that she would be open to talking with an operator specialist communications regarding treatment. She is not sure if that is something she wants to do. Psych: On venlafaxine 150 mg (increased at last visit) and hydroxyzine 10 mg as needed. She states that the venlafaxine could be increased a little bit more. Overall feels like her anxiety is okay but she notices it every day. In the past she tried sertraline but found this ineffective. No SI/HI. Derm: Follows with [facility]. On clobetasol as needed. MSK: She did have recent imaging of her hands, knee and hips. We reviewed the imaging today in the office. She states that the knees do bother her and her hips are achy at times. Her hands are also uncomfortable. She unfortunately can not get into rheumatology locally for about a year. She is interested in seeing a different echocardiograph technician with more availability as she is worried about possibility of psoriatic arthritis. She would like to see Orthopedics for question of injections GI: Over the last few months she states that she has been constipated which is weird for her. She started taking a probiotic to see if that would alleviate it and she states it has not been as beneficial as she would like it to be. She has always been very regular and she is concerned that this could be something more as her mother had colon cancer. She is not due until 2026 but would like to be evaluated. She did also increase the venlafaxine and her frequency of hydroxyzine in the last few months. Otherwise, no changes. No blood in the stool that she has noticed. No weight loss, nausea or vomiting. No abdominal pain. Colonoscopy: Due in 2026 Mammo: Due in February 2025 Bone density: Osteopenia Family history: Has a history of colon cancer. [facility] Medical History (Updated 01/21/25 @ 10:21 by Perla Nuñez PA-C) History of breast cancer Family History Paternal Aunt Alcoholism Other FH: mental illness Social History (Updated 01/21/25 @ 09:39 by Joanna Marcano MA) Housing: House Alcohol intake: current Patient Tobacco Use Status: Former Tobacco user e-Cigarette/Vaping Use: Never Used Second Hand Smoke Exposure: No service: No Cognitive needs: Yes (forgetful) Hearing needs: No Vision needs: Yes (glasses) Questionnaire Thrive Questionnaire Date Thrive assessed: 11/18/24 I am a: Patient What is your living situation today?: I have a steady place to live Within the past 12 months, did the food you bought not last and you didn't have the money to get more?: Never true Within the past 12 months, did you worry whether your food would run out before you got money to buy more?: Never true Do you have trouble paying for medicines?: No Do you have trouble getting transportation to medical appointments?: No Do you have trouble paying your heating and electricity bill?: No Do you have trouble taking care of your child, family member or friend?: No Do you have trouble with day-to-day activities such as bathing, preparing meals, shopping, managing finances, etc.?: No Are you currently unemployed and looking for a job?: No Are you interested in more education?: Yes Please select the resources that you would like help with: Education Currently or been in a relationship where the following occur: No concerns reported THRIVE Score: 0 SHERICE-7 AMB Questionnaire SHERICE-7 Date SHERICE - 7 assessed: 11/18/24 Source: Developed by Drs. Iban Briceño, Keyana Le, Abhilash Anaya and colleagues, with an educational michelle from [email or web address]. Physical exam (Primary Care) Vital Signs: Last Vital Signs Temp 97.8 F 01/21/25 09:39 Pulse 86 01/21/25 09:39 Resp 15 01/21/25 09:39 BP 106/72 01/21/25 09:39 Pulse Ox 94 01/21/25 09:39 Oxygen Delivery Method Room Air 01/21/25 09:39 BMI result Body Mass Index 24.2 Tobacco/Smoking Status: Tobacco use Status Tobacco use date assessed 01/21/25 01/21/25 09:42 Patient Tobacco Use Status Former Tobacco user 01/21/25 09:39 e-Cigarette/Vaping Use Never Used 01/21/25 09:39 Thrive Assessment: Date of Thrive Assessment Date Thrive assessed 11/18/24 01/21/25 09:34 Currently or been in a relationship where the following occur: No concerns reported Const Orientation/consciousness: patient oriented x3 HENMT Ears: hearing grossly normal bilaterally Neck Thyroid: Thyroid normal Lymphatic: no lymphadenopathy noted Resp Auscultation: clear to auscultation bilaterally Cardio Rate: regular rate Rhythm: regular rhythm Heart sounds: S1 normal heart sound present and S2 normal heart sound present GI Inspection: Yes normal to inspection Palpation (GI): Soft to palpation and Other GI palpation findings present (nontender, no cva tenderness) Auscultation: normoactive bowel sounds Rectal Exam - Female: deferred Skin General skin exam: no rashes or lesions noted Neuro General: patient oriented x3, gait normal and no focal motor deficits Results Reviewed Results Reviewed: Laboratory Tests 11/25/24 11/25/24 08:12 08:20 WBC 6.1 RBC 4.35 Hgb 13.4 Hct 40.1 Plt Count 260 Sodium 140 Potassium 3.9 Chloride 107 Carbon Dioxide 28 Anion Gap 9 L BUN 20 H Creatinine 0.87 Estimated GFR > 60 Fasting Glucose 95 Estimat Average Glucose 114 Hemoglobin A1c % 5.6 Calcium 9.6 Total Bilirubin 0.6 AST 25 ALT 21 Alkaline Phosphatase 60 Total Protein 7.3 Albumin 4.3 Triglycerides 86 Cholesterol 248 H LDL Cholesterol, Calc 144 H HDL Cholesterol 87 25-OH Vitamin D Total 69.7 TSH 1.54 Urine Protein Negative Urine Glucose (UA) Negative Urine Ketones Negative Urine Blood Negative Urine Creatinine 124.90 Urine Microalbumin < 5.0 Microalb/Creat Ratio TNP Lyme Screen IgG & IgM <0.90 XR/XR knee RT 2V IMPRESSION: 1. No acute bony abnormalities. 2. Tricompartmental osteoarthrosis, moderate to severe in the medial compartment. 3. Moderate to large-sized suprapatellar joint effusion. XR/XR hips PAUL min 3V IMPRESSION: 1. No acute bony abnormalities in either hip. 2. Minimal osteoarthritis in both hip joints. XR/XR Hand Bilat min 3v IMPRESSION: Right: Moderate to severe osteoarthritis with erosive component involving the second and third DIP joints and second PIP joint. Left hand: Moderate severe osteoarthritis with erosive osteoarthritic component involving the second and third DIP joints and second PIP joint. Coding Level of Care Code Est Pt Level 4 (35336) Complex EM visit Add On G2211 Diagnoses Psoriasis L40.9 Erosive (osteo)arthritis M15.4 Bilateral knee pain M25.561; M25.562 Bilateral hip pain M25.551; M25.552 HLD (hyperlipidemia) E78.5 Generalized anxiety disorder F41.1 Major depression, recurrent, chronic F33.9 Constipation K59.00 Assessment & Plan Assessment & Plan (1) Psoriasis: Code(s): L40.9 - Psoriasis, unspecified Category: Medical Plan: Following with [facility] (2) Erosive (osteo)arthritis: Code(s): M15.4 - Erosive (osteo)arthritis Category: Medical Plan: I have referred her to Rheumatology at [facility] (3) Bilateral knee pain: Code(s): M25.561 - Pain in right knee; M25.562 - Pain in left knee Category: Medical Plan: Referral to ortho (4) Bilateral hip pain: Code(s): M25.551 - Pain in right hip; M25.552 - Pain in left hip Category: Medical Plan: As above. Did reminded that she could take an NSAID if needed (5) HLD (hyperlipidemia): Code(s): E78.5 - Hyperlipidemia, unspecified Category: Medical Plan: She is going to work on reducing ldl with diet (6) Generalized anxiety disorder: Code(s): F41.1 - Generalized anxiety disorder Category: Medical Plan: increase effexor to 225 mg continue hydroxyzine prn (7) Major depression, recurrent, chronic: Code(s): F33.9 - Major depressive disorder, recurrent, unspecified Category: Medical Plan: as above. stable (8) Constipation: Code(s): K59.00 - Constipation, unspecified Category: Medical Plan: Discussed could be related to the hydroxyzine as well. She is going to cut back on hydroxyzine to see if symptoms improve. She will make sure she is well hydrated. We reviewed labs. I have referred her to GI. If anything worsens or changes she will let me know. Orders: Referrals Rheumatology Referral L40.9 - Psoriasis, unspecified, M15.4 - Erosive (osteo)arthritis Orthopedics Referral M25.551 - Pain in right hip, M25.552 - Pain in left hip, M25.561 - Pain in right knee, M25.562 - Pain in left knee, M79.641 - Pain in right hand, M79.642 - Pain in left hand Gastroenterology Referral K59.00 - Constipation, unspecified Medications: New docusate sodium (Colace) 100 mg PO BID PRN 180 caps 0RF constipation 90 days venlafaxine ER 225 mg PO BEDTIME 90 tabs 1RF Discontinued venlafaxine ER Discontinued Reason: None 150 mg PO DAILY 90 caps 3RF
[2025-01-21 09:39] VITALS: BP 106/72; PULSE 86; RESP 15; TEMP 36.6; O2SAT 94; BMI 24.2
--- OUTSIDE RECORDS SUMMARY | 2025-01-21 10:10 | XMS_ITS | Clinical Summary ---
Author Organization [employer] [facility] Address [address] [place] [address] Care Team Providers Care Production Bow Maker Name Role Phone Lena Tracey MD Primary Care Provider [phone] Surgical History Surgery Date Site/Laterality Comments OTHER [...] MRI bx BREAST BIOPSY 1997 Left PROCEDURE: OK BX BREAST W/DEVICE 1ST LESION ULTRASOUND GUID; [...] V28) 2014 DX:Malignant melanoma of louisa ast ([facility]); COMMENT: rt Osteoporosis DX:Osteoporosis Diarrhea DX:Diarrhea Fecal [...] 03/18/2025 9:00 AM EDT Appointment Radiology Department [address] [address] Health Maintenance Due Date Last Done Comments RSV Immunization Adult Patients (1 - 1-dose 75+ series) 2021 Cholesterol Screening (Lipid Panel) 05/19/2022 Colorectal Cancer Screening: Colonoscopy 05/19/2022 Falls Risk Assessment 05/19/2022 Hepatitis C Screening 05/19/2022 Social Influencers of Health Screening 05/19/2022 COVID-19 Vaccine ( season) 2024 02/28/2024, 02/28/2022, 09/22/2021, Additional history exists Depression Screening 06/10/2024 Influenza Vaccine (#1) 2025 , 02/28/2022, 02/22/2021, [...] should be classified as having osteoporosis. [facility] Department of Internal Medicine recommends using [...] Gordon should beclassified as having osteoporosis. [facility] Department of Internal Medicine recommendsusing National [...] fracture risk by FRAX. Nahed Lopez DO [facility] DXA PROCEDURES Final Result from Last 3 Months or Most Recently Relevant to Health Maintenance Care Teams Production Bow Maker Relationship Specialty Start Date End Date Lena Tracey MD [address] [place] [id number] PCP - General Internal Medicine 11/20/24
--- OUTSIDE RECORDS SUMMARY | 2025-01-21 10:10 | XMS_ITS | Encounter Summary ---
Author Organization [facility] Address [address] [place] [id number] Phone Care Team Providers Care Paid Search Marketing Strategist Name Role Phone Nahed Lopez DO Primary Care Provider [phone] Lena Boateng MD Primary Care Provider [phone] Reason for Referral * Outpatient Procedure - Closed Specialty Diagnoses / Procedures Referred By Myron ely Referred To Contact Radiology Diagnoses Weakness Procedures US Carotid Duplex Complete (Bilateral) Jaime Roth MD Phone: tel: fax: [email or web address] Referral ID Status Reason Start Date Expiration Date Visits Re quested Visits Authorized [id number] Closed 12/18/2021 12/18/2022 1 1 Encounter Details Date Type Department Care Team (Latest Contact Info) Description 12/18/2021 Transcribe Orders Virtual Department [address] [place] [id number] Jaime Roth MD [address] [place] [address], [address] [place] [address] [email or web address] Weakness (Primary Dx) Social History Tobacco Use Types Packs/Day Years Used Date Smoking Tobacco: Never Assessed Comments Unknown Sex and Gender Information Value Date Recorded Sex Assigned at Not on file Legal Sex Female 9:30 AM EDT Gender Identity Not on file Sexual Orientation Not on file documented as of this encounter Plan of Treatment Not on file documented as of this encounter Results * US Carotid Duplex Complete (Bilateral) (12/27/2021 3:04 PM EDT) Anatomical Region Laterality Modality Heart, Thoracic Vasculature, Neck Ultrasound 12/28/2021 9:32 AM EDT Impressions 12/28/2021 10:06 AM EDT 1. No hemodynamically significant internal carotid artery stenosis. 2. Bilateral antegrade vertebral artery flow. Narrative 12/28/2021 10:06 AM EDT COMPARISON: None. CAROTID ULTRASOUND FINDINGS: RIGHT: Peak external carotid artery: 76 cm/sec Peak vertebral: 55 cm/sec and antegrade Carotid artery morphology: No significant plaque. Peak common carotid artery: 88/20 cm/sec Peak internal carotid artery: 108/33 cm/sec Normal peak systolic ratio. LEFT: Peak external carotid artery: 80 cm/sec Peak vertebral: 55 cm/sec and antegrade Carotid artery morphology: No significant plaque. Peak common carotid artery: 85/24 cm/sec Peak internal carotid artery: 125/41 cm/sec Normal peak systolic ratio. Any stenosis measurement is relative to the distal ICA diameters. Procedure Note Dale Loco MD - 12/28/2021 COMPARISON: None. CAROTID ULTRASOUND FINDINGS: RIGHT: Peak external carotid artery: 76 cm/sec Peak vertebral: 55 cm/sec and antegrade Carotid artery morphology: No significant plaque. Peak common carotid artery: 88/20 cm/sec Peak internal carotid artery: 108/33 cm/sec Normal peak systolic ratio. LEFT: Peak external carotid artery: 80 cm/sec Peak vertebral: 55 cm/sec and antegrade Carotid artery morphology: No significant plaque. Peak common carotid artery: 85/24 cm/sec Peak internal carotid artery: 125/41 cm/sec Normal peak systolic ratio. Any stenosis measurement is relative to the distal ICA diameters. IMPRESSION: 1. No hemodynamically significant internal carotid artery stenosis. 2. Bilateral antegrade vertebral artery flow. Jaime Roth MD CV US NEUROVASCULAR Final Re sult documented in this encounter Visit Diagnoses Diagnosis Weakness- Primary Other malaise and fatigue Weakness Other malaise and fatigue documented in this encounter Care Teams Paid Search Marketing Strategist Relationship Specialty Start Date End Date Nahed Lopez DO [address] [place] [address] PCP - General Family Medicine 12/18/21 11/15/24 Lena Boateng MD [address] [place] [address] PCP - General Internal Medicine 11/16/24 documented as of this encounter Additional Source Comments The information contained in this document represents components of the legal health record. It is not the complete legal health record.[facility]
== END 2025-01-21 10:28 | disposition home or self-care (01) ==
LOC: HO.HMCFM 09:32
PROVIDERS: PCP Physician Assistant; Visit Provider Physician Assistant
DX: L40.9 Psoriasis, unspecified (principal); M15.4 Erosive (osteo)arthritis; M25.561 Pain in right knee; M25.562 Pain in left knee; M25.551 Pain in right hip; M25.552 Pain in left hip; E78.5 Hyperlipidemia, unspecified; F41.1 Generalized anxiety disorder; F33.9 Major depressive disorder, recurrent, unspecified; K59.00 Constipation, unspecified

== ENCOUNTER 2025-03-03 09:26 | Outpatient (REF) | payer OTHER, SELFPAY | END 2025-03-03 09:27 | disposition home or self-care (01) | LOC: HO.HOSX 09:26 | PROVIDERS: Visit Provider Orthopaedic Surgery | DX: Z13.89 Encounter for screening for other disorder (principal) ==

== ENCOUNTER 2025-03-04 07:55 | Outpatient (AMB) | payer OTHER, SELFPAY ==
--- OUTSIDE RECORDS SUMMARY | 2025-03-02 13:00 | XMS_ITS | Encounter Summary ---
Author Organization [facility] Address [address] [place] [address] Care Team Providers Care Applications Support Lead Name Role Phone Pcp, No Primary Care Provider Unavailabl e Reason for Visit * Reason Comments Consult * Rheumatology (Routine) - Closed Specialty Diagnoses / Procedures Referred By Myron ely Referred To Contact Rheumatology Diagnoses Erosive osteoarthritis Psoriasis Perla Nuñez, PA [address] [place] [address] Phone: tel: fax: Clement Sotelo MD [address] [place] [address] Phone: tel: fax: Referral ID Status Reason Start Date Expiration Date V isits Requested Visits Authorized [id number] Closed Consult 01/26/2025 01/27/2026 1 1 Encounter Details Date Type Department Care Team (Late st Contact Info) Description 03/02/2025 1:00 PM EDT Consult [facility] Rheumatology [address] [address] Clement Sotelo MD [address] [place] [address] Primary osteoarthritis involving multiple joints (Primary Dx); [...] diagnosed with psoriasis in her 60s by teacher early childhood development, treated with topicalsteroids, stable. Reviewed referring provider's [...] PT. She likes to get one in [place] and will discusswith CP for recommendation. We [...] use of NSAIDs Clement Sotelo MD, PhD, [facility] Rheumatology, Bone [facility] [place] [address] [place] [address], [place] [address] [1] Current Outpatient Medications: clobetasol (TEMOVATE) 0.05 [...] anti-inflammatories documented in this encounter Care Teams Applications Support Lead Relationship Specialty Start Date End Date Pcp, No PCP - General General Medicine 02/02/25 documented as of this encounter
--- OUTSIDE RECORDS SUMMARY | 2025-03-04 07:59 | XMS_ITS | Clinical Summary ---
Author Organization [facility] Address [address] [place] [address] Care Team Providers Care Breaster Name Role Phone Pcp, No Primary Care Provider Unavailabl e Allergies Active Allergy Reactions Criticality Noted Date Comments Cat Dander Other (See Comments) Low 11/16/2024 Horses also Exemestane Other (See Comments) Low 05/05/2018 Medications clobetasol (TEMOVATE) 0.05 % ointment apply 1 application topically 2 times a day As Needed for psoriasis 5 Active docusate sodium (COLACE) 100 MG capsule take 1 capsule by mouth twice daily as needed for constipation 5 Active venlafaxine 225 MG Tablet SR 24 hr Take 1 tablet (225 mg total) by mouth nightly. 5 Active hydrOXYzine HCl (ATARAX) 10 MG tablet TAKE 1 TABLET BY MOUTH every 4 hours NEEDED FOR anxiety 5 Active Encounters Date Type Department Care Team Description 03/02/2025 1:00 PM EDT Consult [facility] Rheumatology [address] [address] Clement Sotelo MD Primary osteoarthritis involving multiple joints (Primary Dx); Imbalance; Encounter for long-term (current) use of NSAIDs 03/02/2025 Travel 01/26/2025 Transcribe Orders [facility] Rheumatology [address] [address] Perla Nuñez PA Erosive osteoarthritis (Primary Dx); Psoriasis from Last 3 Months Social History Tobacco Use Types Packs/Day Years [...] Orientation Heterosexual (straight) 02/02 2:31 PM EDT Last Filed Vital Signs Vital Sign Reading [...] Mass Index 23.34 03/02/2025 12:48 PM EDT Plan of Treatment Health Maintenance Due Date Last Done Comments Advance Care Planning 1945 Hepatitis C Virus Screening 1945 DTaP/Tdap/Td Vaccines (1 - Tdap) 1965 Pneumococcal Vaccines 50+ (1 of 1 - PCV) 1996 Zoster (Shingles) Vaccine (1 of 2) 1996 DXA Bone Density (Females,Ag es 65 and older) 10/30/2011 RSV Vaccine 60 years and old er and Patients (1 - 1-dose 75+ series) 2021 Influenza Vaccine 01/08/2025 COVID-19 Vaccine ( - 2023-2 5 season) 2025 Hepatitis B Vaccines Aged Out No long er eligible based on patient's age to complete this topic Insurance Care Teams Breaster Relationship Specialty Start Date End Date Pcp, No PCP - General General Medicine 02/02/25
--- OUTSIDE RECORDS SUMMARY | 2025-03-04 07:59 | XMS_ITS | Encounter Summary ---
Author Organization [facility] Address [address] [place] [address] Phone Care Team Providers Care Ops Manager Name Role Phone Nahed Lopez DO Primary Care Provider [phone] Lena Boateng MD Primary Care Provider [phone] Reason for Referral * Outpatient Procedure - Closed Specialty Diagnoses / Procedures Referred By Myron ely Referred To Contact Radiology Diagnoses Weakness Procedures US Carotid Duplex Complete (Bilateral) Jaime Roth MD Phone: tel: fax: [email or web address] Referral ID Status Reason Start Date Expiration Date Visits Re quested Visits Authorized [id number] Closed 12/18/2021 12/18/2022 1 1 Encounter Details Date Type Department Care Team (Latest Contact Info) Description 12/18/2021 Transcribe Orders Virtual Department [address] [place] [address] Jaime Roth MD [address] [place] [address], [address] [place] [address] [email or web address] Weakness (Primary Dx) [...] fatigue documented in this encounter Care Teams Ops Manager Relationship Specialty Start Date End Date Nahed Lopez DO [address] [place] [address] PCP - General Family Medicine 12/18/21 11/15/24 Lena Boateng MD [address] [place] [address] PCP - General Internal Medicine 11/16/24 documented as of this encounter Additional Source Comments The information contained in this document represents components of the legal health record. It is not the complete legal health record.[facility]
--- OUTSIDE RECORDS SUMMARY | 2025-03-04 07:59 | XMS_ITS | Clinical Summary ---
Author Organization [facility] Address [address] [place] [address] Care Team Providers Care Manager Of Purchasing Name Role Phone Lena Tracey MD Primary Care Provider [phone] Surgical History Surgery Date Site/Laterality Comments OTHER [...] MRI bx BREAST BIOPSY 1997 Left PROCEDURE: MT BX BREAST W/DEVICE 1ST LESION ULTRASOUND GUID; [...] V28) 2014 DX:Malignant melanoma of louisa ast ([facility]); COMMENT: rt Osteoporosis DX:Osteoporosis Diarrhea DX:Diarrhea [...] 03/18/2025 9:00 AM EDT Appointment Radiology Department [address] [address] Health Maintenance Due Date Last Done Comments RSV Immunization Adult Patients (1 - 1-dose 75+ series) 2021 Cholesterol Screening (Lipid Panel) 05/19/2022 Colorectal Cancer Screening: Colonoscopy 05/19/2022 Falls Risk Assessment 05/19/2022 Hepatitis C Screening 05/19/2022 Social Influencers of Health Screening 05/19/2022 Depression Screening 06/10/2024 COVID-19 Vaccine ( season) 2025 02/28/2024, 02/28/2022, 09/22/2021, Additional history exists Influenza [...] should be classified as having osteoporosis. [facility] Department of Internal Medicine recommends using [...] Gordon should beclassified as having osteoporosis. [facility] Department of Internal Medicine recommendsusing National [...] fracture risk by FRAX. Nahed Lopez DO IM DXA PROCEDURES Final Result from Last 3 Months or Most Recently Relevant to Health Maintenance Insurance Care Teams Manager Of Purchasing Relationship Specialty Start Date End Date Lena Tracey MD [address] [place] [address] PCP - General Internal Medicine 11/20/24
--- OUTSIDE RECORDS SUMMARY | 2025-03-04 07:59 | XMS_ITS | Clinical Summary ---
Author Organization [facility] Address [address] [place] [address] Phone Care Team Providers Care Food Service Assistant Name Role Phone Lena Boateng MD Primary Care Provider [phone] Allergies Active Allergy Reactions Criticality Noted Date Comments Cat Dander Sneezing Low 11/16/2024 Horses also Medications venlafaxine (EFFEXOR-XR) 37.5 MG 24 hr capsule Take 1 Capsule by mouth daily. Take with 75mg tablet daily. 11/09/2024 Active venlafaxine (EFFEXOR-XR) 75 MG 24 hr capsule Take 1 capsule by mouth every morning. 10/26/2024 Active Active Problems No known active problems Social History Tobacco Use Types Packs/Day Years Used Date Smoking Tobacco: Never Smokeless Tobacco: Never Tobacco Cessation:Counseling Given: Not Answered Comments:Smoke marijuana in a blue aragon. Education Answer Date Recorded Are you interested in more education? Not on reece e 10/06/2022 Are you concerned about learning? Not on file 10/06/2022 No 10/06/2022 No 10/06/2022 Digital Access Answer Date Recorded No 11/06/2022 No 11/06/2022 Reliable internet access at home? Not on file 11/06/2022 Device with a working camera? Not on file Comments Unknown Sex and Gender Information Value Date Recorded Sex Assigned at Not on file Legal Sex Female 9:30 AM EDT Gender Identity Not on file Sexual Orientation Not on file Last Filed Vital Signs Vital Sign Reading Time Taken Comments Blood Pressure 125/82 11/16/2024 10:07 AM EDT Pulse 82 11/16/2024 10:07 AM EDT Temperature 36.8 C (98.3 F) 11/16/2024 10:07 AM EDT Respiratory Rate 17 11/16/2024 10:07 AM EDT Oxygen Saturation 97% 11/16/2024 10:07 AM EDT Inhaled Oxygen Concentration - - Weight - - Height - - Body Mass Index - - Plan of Treatment Health Maintenance Due Date Last Done Comments LIPID PANEL 1945 DEPRESSION SCREENING 1958 HEPATITIS C SCREENING 1964 OSTEOPOROSIS SCREENING INITIAL (ONE-TIME) 10/30/2011 INFLUENZA VACCINE (#1) 2025 , 03/06/2023, 02/28/2022, Additional history exists COVID-19 VACCINE ( season) 2025 02/28/2024, 02/21/2024, 04/04/2023, Additional history exists Adult Td,Tdap Booster 01/05/2030 01/06/2020 , 09/13/2009, 08/20/2000 PNEUMOCOCCAL VACCINES (50+ years) Completed 10/25/2015, 05/12/2012 ZOSTER VACCINES Completed 12/07/2020, 09/09, 01/17/2012 RSV VACCINE Completed 04/04/2023 SMOKING STATUS SCREENING (Once After 26 Yrs) Completed 11/16/2024 HEPATITIS A VACCINES Aged Out No long er eligible based on patient's age to complete this topic HIB VACCINES Aged Out No longer eligi ble based on patient's age to complete this topic MENINGOCOCCAL VACCINES (ACWY) Aged Out No longer eligible based on patient's age to complete this topic MENINGOCOCCAL VACCINES (B) Aged Out N o longer eligible based on patient's age to complete this topic Medical Devices Not on file Insurance [facility] [place] [address] [place] [address] [address] [place] [address] HMO Care Teams Food Service Assistant Relationship Specialty Start Date End Date Lena Boateng MD PCP - General Internal Medicine 11/16/24 Additional Source Comments The information contained in this document represents components of the legal health record. It is not the complete legal health record.[facility]
--- OUTSIDE RECORDS SUMMARY | 2025-03-04 07:59 | XMS_ITS ---
Author Name [facility] Organization Unknown Problems Problem Status Onset Date Problem Type Date of Resolution Source Erosive osteoarthritis active EncounterDiagnosisAct [facility] Psoriasis [facility] En[facility] Encounter Type Encounter Reason Primary Diagnosis Location Date Ambulatory Consult Consult [facility] 03/02/2025 Care Team Organization Name Specialty Phone Email Start Date End [email or web address] PCP Doctor Of Osteopathy 03/02/2025 [email or web address] NO PCP Primary Care 02/02/2025
--- OUTSIDE RECORDS SUMMARY | 2025-03-04 07:59 | XMS_ITS | Encounter Summary ---
Author Organization [facility] Address [address] [place] [address] Care Team Providers Care Outbound Telemarketer Name Role Phone Pcp, No Primary Care Provider Unavailabl e Encounter Details Date Type Department Care Team (Latest Contact Info) Description 03/02/2025 Travel Social History Tobacco Use Types Packs/Day Years [...] PM EDT documented as of this encounter Plan of Treatment Not on file documented as of this encounter Visit Diagnoses Not on filedocumented in this encounter Care Teams Outbound Telemarketer Relationship Specialty Start Date End Date Pcp, No PCP - General General Medicine 02/02/25 documented as of this encounter
--- NOTE | 2025-03-04 08:06 | A.OFFVIS_ITS ---
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 The patient also reports having ?balance problems?. She reports intermittent weakness in both of her legs. She states that she has recently fallen on several occasions. The patient states that she was seen by Dr. Marvin several years ago for her low back pain. She received several cortisone injections into her low back which gave her minimal relief. Allergies cat dander (cats) Adverse Reaction (Verified 03/04/25 08:10) Sneezing aromacin Allergy (Unknown, Uncoded 01/21/25 09:37) affects liver function horses Adverse Reaction (Uncoded 03/04/25 08:10) Sneezing Medication List - Last Reconciled 03/04/25 by Matty Casper MD clobetasol 0.05% 1 appl topical BID PRN docusate sodium (Colace) 100 mg PO BID PRN 90 days hydroxyzine HCl 10 mg PO Q4H PRN venlafaxine ER 225 mg PO BEDTIME PFSH Medical History (Updated 03/04/25 @ 08:25 by Matty Casper MD) History of breast cancer Family History Paternal Aunt Alcoholism Other FH: mental illness Social History (Updated 01/21/25 @ 09:39 by Joanna Marcano MA) Housing: House Alcohol intake: current Patient Tobacco Use Status: Former Tobacco user e-Cigarette/Vaping Use: Never Used Second Hand Smoke Exposure: No service: No Cognitive needs: Yes (forgetful) Hearing needs: No Vision needs: Yes (glasses) Physical Exam Vital Signs: BMI result Body Mass Index 23.3 Const Other: Well-nourished well-developed very friendly female awake alert and oriented x3 in no acute distress Back/Spine/Pelvis Other: Low back examination shows bilateral paraspinal muscle tenderness, pain with range of motion, positive straight leg raise tests bilaterally at 70 degrees Extrem Other: Bilateral knee examination shows minimal effusions, mild crepitus with range of motion, no instability Results Reviewed Results Reviewed: X-rays of the patient's bilateral knee show moderate diffuse joint space narrowing, subchondral sclerosis, no acute bony abnormalities Assessment & Plan Assessment & Plan (1) Low back pain: Code(s): M54.50 - Low back pain, unspecified Category: Medical (2) Balance disorder: Code(s): R26.89 - Other abnormalities of gait and mobility Category: Medical Plan Ms. Gordon presents with progressively worsening low back pain as well as associated bilateral leg weakness possibly due to lumbar stenosis or a disc herniation. Thus, I will send her for an MRI of her lumbar spine for further evaluation. I will contact her by phone once the MRI results are available. She will call me prior to that time should her symptoms worsen in any way. Feel free to call me at any time should questions regarding her orthopedic management arise. I spent 20 minutes in reviewing the patient's records and imaging studies, seeing the patient and documenting in the medical record. Orders: Orders MR lumbar spine wo con 03/05/25 M54.50 - Low back pain, unspecified XR knee LT 3V Today M25.562 - Pain in left knee Referrals Neurology Referral R26.89 - Other abnormalities of gait and mobility Coding Level of Care Code New Pt Level 3 (79016) Complex EM visit Add On G2211 Diagnoses Low back pain M54.50 Balance disorder R26.89
[2025-03-04 08:08] VITALS: BMI 23.3
== END 2025-03-04 08:23 | disposition home or self-care (01) ==
LOC: HO.HOS 07:56
PROVIDERS: PCP Physician Assistant; Visit Provider Orthopaedic Surgery
DX: M54.50 Low back pain, unspecified (principal); R26.89 Other abnormalities of gait and mobility
CPT/HCPCS: 99203; G2211

== ENCOUNTER → 2025-03-04 07:57 | Outpatient (BNV) | payer OTHER, SELFPAY | PROVIDERS: Visit Provider Radiology Diagnostic Radiology | DX: M17.12 Unilateral primary osteoarthritis, left knee (principal) | CPT/HCPCS: 73562 ==

== ENCOUNTER 2025-03-04 11:35 | Outpatient (REF) | payer OTHER, SELFPAY ==
--- OUTSIDE RECORDS SUMMARY | 2025-03-02 13:00 | XMS_ITS | Encounter Summary ---
Author Organization [facility] Address [address] [place] [address] Care Team Providers Care Boilermaker Industrial Boilers Name Role Phone Pcp, No Primary Care Provider Unavailabl e Reason for Visit * Reason Comments Consult * Rheumatology (Routine) - Closed Specialty Diagnoses / Procedures Referred By Myron ely Referred To Contact Rheumatology Diagnoses Erosive osteoarthritis Psoriasis Perla Nuñez, PA [address] [place] [address] Phone: tel: fax: Clement Sotelo MD [address] [place] [address] Phone: tel: fax: Referral ID Status Reason Start Date Expiration Date V isits Requested Visits Authorized [id number] Closed Consult 01/26/2025 01/27/2026 1 1 Encounter Details Date Type Department Care Team (Late st Contact Info) Description 03/02/2025 1:00 PM EDT Consult [facility] Rheumatology [address] [phone] Clement Sotelo MD [address] [place] [address] Primary osteoarthritis involving multiple joints (Primary Dx); Imbalance; Encounter for long-term (current) use of NSAIDs Social History Tobacco Use Types Packs/Day Years Used Date Smoking Tobacco: Never Smokeless Tobacco: Never Alcohol Use Standard Drinks/Week Comments Yes 0 (1 standard drink = 0.6 oz pur e alcohol) occasional Comments Unknown Sex and Gender Information Value Date Recorded Sex Assigned at Female 02/02/2025 2:31 PM EDT Legal Sex Female 10:49 AM EDT Gender Identity Female 02/02/2025 2:31 PM EDT Sexual Orientation Heterosexual (straight) 02/02 2:31 PM EDT documented as of this encounter Last Filed Vital Signs Vital Sign Reading Time Taken Comments Blood Pressure 147/70 03/02/2025 12:48 PM EDT Pulse 88 03/02/2025 12:48 PM EDT Temperature - - Respiratory Rate - - Oxygen Saturation 98% 03/02/2025 12:48 PM EDT Inhaled Oxygen Concentration - - Weight 61.7 kg (136 lb) 03/02/2025 12:48 PM EDT Height 162.6 cm (5' 4 ) 03/02/2025 12:48 PM EDT Body Mass Index 23.34 03/02/2025 12:48 PM EDT documented in this encounter Progress Notes * Clement Sotelo MD - 03/02/2025 1:00 PM EDT Images from the original note were not included. HPI: Ms. Lena Gordon is a 79 y.o. female has past medical history of Psoriasis, HLD, OA, anxiety, referred by KENZIE Nuñez for the evaluation and management of erosive OA and psoriasis. As a recap: the patient started to have generalized pain years ago, gradually getting worse. The pain is constant, fluctuating pattern, migratory, pain is worse with activities/weather changes/stress, aches/soreness, no joint swelling, morning stiffness for minutes, associated with fatigue, uses ibuprofen as needed for pain with improvement. Of note: the patient was diagnosed with psoriasis in her 60s by manager culinary, treated with topicalsteroids, stable. Reviewed referring provider's note and records. Previous Labs reviewed: in 11/2024: CBC unremarkable, AST/ALT 25/21, BUN/Cr 20/0.87, TSH WNL, Images study reviewed: x-ray of hip in 12/2024: mild osteoarthritis hand: moderate-severe osteoarthritis with erosion She has no known family history of rheumatic diseases. Broth positive psoriasis, no IBD. ROS: Scattered rash on legs, positive dry mouth. No dry eyes or eye discharge No sore throat or nasal congestion/discharge or ear discharge No purpura or petechia No palpitation or chest pain No cough or shortness of breath. No abdominal pain or diarrhea No dysuria. No fever or chills. No weight loss No headache/dizziness No vision changes See HPI for joints Meds List: Current Medications[1] Allergy: Allergies[2] PMH: No past medical history on file. FH: family history is not on file. SH: reports that she has never smoked. She has never used smokeless tobacco. She reports current alcohol use. She reports that she does not use drugs. PSH: has no past surgical history on file. Physical Examination: VS: BP (!) 147/70 (BP Location: Left arm, Patient Position: Sitting, Cuff Size: Medium (Standard)) Pulse 88 Ht 1.626 m (5' 4 ) Wt 61.7 kg (136 lb) SpO2 98% BMI 23.34 kg/m?? General: well-developed, NAD. Eyes: no discharge, pallor, or icteric. Mouth/nose/ear/throat: moist mucosa membrane and no mouth ulcer or ulcers in the nose Neck: supple, no lymphadenopathy or JVD Skin: scattered hyperpigmentation spots, one small patch of possible psoriasis Cardiovascular: S1 and S2; no murmurs, Respiratory: bilateral breath sound, no wheezing, Gastrointestinal: soft, no tenderness and non-distended; Bowel Sounds: normal, Musculoskeletal: hand/wrist: positive tenderness of DIPs/PIPs with severe OA changes and heberden nodes, worst of bilateral 2nd finger with deformity, no swelling or erythema, shoulder: tender with motion of left shoulder, negative empty cup test, foot/ankle: positive tenderness of MTPs with no swelling, bunion of bilateral 1st MTP, Neurologic: muscle strength normal. A/P: Ms. Lena Gordon is a 79 y.o. female has past medical history of Psoriasis, HLD, OA, anxiety, referred by KENZIE Nuñez for the evaluation and management of erosive OA and psoriasis. Based on the patient's history, presentation, physical examination and previous image studies, likely she has degenerative arthritis. No sign of active synovitis or inflammation, no concern of active inflammatory a rthritis, unlikely active psoriatic arthritis. Recommend to follow up with dermatology for psoriasis. Continue ibuprofen as needed and consider duloxetine, but she is on venlafaxine, recommend to discuss with PCP for the marco a of duloxetine. May consider steroid injection if worse. Not sure the etiology of imbalance, recommend neurology evaluation and PT. She likes to get one in [place] and will discusswith CP for recommendation. We discussed the diagnosis and management. All questions answered. Plan: 1. Continue ibuprofen as needed, instruction explained, 2. Encourage exercises 3. Recommend PT and neurology evaluation 4. Follow up as needed, contact us for any questions and concerns. Sooner appointment Lena was seen today for consult. Diagnoses and all orders for this visit: Primary osteoarthritis involving multiple joints Imbalance Encounter for long-term (current) use of NSAIDs Clement Sotelo MD, PhD, [facility] [address] [place] [address], [place] [address] [1] Current Outpatient Medications: clobetasol (TEMOVATE) 0.05 % ointment, apply 1 application topically 2 times a day As Needed for psoriasis, Disp: , Rfl: docusate sodium (COLACE) 100 MG capsule, take 1 capsule by mouth twice daily as needed for constipation, Disp: , Rfl: hydrOXYzine HCl (ATARAX) 10 MG tablet, TAKE 1 TABLET BY MOUTH every 4 hours NEEDED FOR anxiety (Patient taking differently: as needed.), Disp: , Rfl: venlafaxine 225 MG Tablet SR 24 hr, Take 1 tablet (225 mg total) by mouth nightly., Disp: , Rfl: [2] Allergies Allergen Reactions Cat Dander Other (See Comments) Horses also Exemestane Other (See Comments) documented in this encounter Plan of Treatment Not on file documented as of this encounter Visit Diagnoses Diagnosis Primary osteoarthritis involving multiple joints- Primary Imbalance Abnormality of gait Encounter for long-term (current) use of NSAIDs Encounter for long-term (current) use of non-steroidal anti-inflammatories documented in this encounter Care Teams Boilermaker Industrial Boilers Relationship Specialty Start Date End Date Pcp, No PCP - General General Medicine 02/02/25 documented as of this encounter
--- NOTE | ~2025-03-04 | XR_ITS ---
EXAMINATION: XR KNEE, LEFT CLINICAL INFORMATION: M25.562 - Pain in left knee COMPARISON: None available. TECHNIQUE: AP lateral and sunrise views of the left knee. FINDINGS: Joint space narrowing involving medial lateral compartment as well as the patellofemoral joint space. Sclerosis along the articular surface of the tibial plateaus and femoral condyles with small subchondral cyst formation. Osteophyte formation in the posterior superior patella. Suprapatellar bursa joint effusion, moderate volume. No acute cortical disruption or malalignment. No lytic or blastic lesions. XR/XR knee LT 3V IMPRESSION: Tricompartmental osteoarthrosis/osteoarthritis, moderate. Suprapatellar bursa joint effusion, moderate volume. Electronically signed by: Cesar Campbell MD 03/04/2025 08:32 AM EDT
--- OUTSIDE RECORDS SUMMARY | 2025-03-05 13:30 | XMS_ITS | Clinical Summary ---
Author Organization Health system Address [address] [place] [address] Care Team Providers Care Senior Games Technician Name Role Phone None, Provider IVORY CARVER Primary Care Provider Unavaila ble Allergies No known active allergies Medications FLUoxetine (PROZAC) 20 mg capsule Take 20 mg by mouth daily. Active Social History Tobacco Use Types Packs/Day Years Used Date Smoking Tobacco: Never Alcohol Use Standard Drinks/Week Comments Yes 7 (1 standard drink = 0.6 oz pur e alcohol) Interpersonal Safety Answer Date Record ed Physically Hurt Never 01/11/2020 Verbally Threaten Not on file 01/11/2020 Comments Unknown Sex and Gender Information Value Date Recorded Sex Assigned at Not on file Legal Sex Female 9:17 EDT Gender Identity Not on file Sexual Orientation Not on file Obstetrics History Last Filed Vital Signs Vital Sign Reading Time Taken Comments Blood Pressure 144/83 01/25/2017 0925 EDT Pulse 84 01/25/2017 0925 EDT Temperature 36.3 C (97.3 F) 01/25/2017 0925 EDT Respiratory Rate 18 01/25/2017 0925 EDT Oxygen Saturation - - Inhaled Oxygen Concentration - - Weight 61.7 kg (136 lb) 01/25/2017 0925 EDT Height - - Body Mass Index - - Plan of Treatment Health Maintenance Due Date Last Done Comments Hepatitis C Screen 1945 Fall Risk Screening 10/30/2011 RSV Immunization ( o r 60+ Years) (1 - 1-dose 75+ series) 2021 COVID-19 Vaccine ( - 2023- season) 2024 Care Teams Senior Games Technician Relationship Specialty Start Date End Date None, Provider, IVORY CARVER PCP - General 01/25/17
--- OUTSIDE RECORDS SUMMARY | 2025-03-05 13:30 | XMS_ITS | Clinical Summary ---
Author Organization [facility] Address [address] [place] [address] Care Team Providers Care Stationary Engineer Refrigeration Name Role Phone Pcp, No Primary Care [...] Team Description 03/02/2025 1:00 PM EDT Consult [facility] Rheumatology [address] [address] Clement Sotelo MD Primary osteoarthritis involving multiple joints (Primary Dx); Imbalance; Encounter for long-term (current) use of NSAIDs 03/02/2025 Travel 01/26/2025 Transcribe Orders [facility] Rheumatology [address] [address] Perla Nuñez PA Erosive osteoarthritis [...] to complete this topic Insurance Care Teams Stationary Engineer Refrigeration Relationship Specialty Start Date End Date Pcp, No PCP - General General Medicine 02/02/25
--- OUTSIDE RECORDS SUMMARY | 2025-03-05 13:30 | XMS_ITS | Encounter Summary ---
Author Organization [facility] Address [address] [place] [address] Phone Care Team Providers Care Financial Secretary Name Role Phone Nahed Lopez DO Primary Care Provider [phone] Lena Boateng MD Primary Care Provider [phone] Reason for Referral * Outpatient Procedure - Closed Specialty Diagnoses / Procedures Referred By Myron ely Referred To Contact Radiology Diagnoses Weakness Procedures US Carotid Duplex Complete (Bilateral) Jaime Roth MD Phone: tel: fax: mailto: Referral ID Status Reason Start Date Expiration Date Visits Re quested Visits Authorized [id number] Closed 12/18/2021 12/18/2022 1 1 Encounter Details Date Type Department Care Team (Latest Contact Info) Description 12/18/2021 Transcribe Orders Virtual Department [address] [place] [address] Jaime Roth MD [address] [place] [address], [address] [place] [address] [email or web address] Weakness (Primary Dx) Social History Tobacco [...] fatigue documented in this encounter Care Teams Financial Secretary Relationship Specialty Start Date End Date Nahed Lopez DO [address] [place] [address] PCP - General Family Medicine 12/18/21 11/15/24 Lena Boateng MD [address] [place] [address] PCP - General Internal Medicine 11/16/24 documented as of this encounter Additional Source Comments The information contained in this document represents components of the legal health record. It is not the complete legal health record.[facility]
--- OUTSIDE RECORDS SUMMARY | 2025-03-05 13:30 | XMS_ITS | Encounter Summary ---
Author Organization [facility] Address [address] [place] [address] Care Team Providers Care Electric Relay Tester Name Role Phone Pcp, No Primary Care [...] on filedocumented in this encounter Care Teams Electric Relay Tester Relationship Specialty Start Date End Date Pcp, No PCP - General General Medicine 02/02/25 documented as of this encounter
--- OUTSIDE RECORDS SUMMARY | 2025-03-05 13:30 | XMS_ITS | Clinical Summary ---
Author Organization [employer] [facility] Address [address] [place] [address] Care Team Providers Care Chief Technician Name Role Phone Lena Tracey MD Primary Care Provider [phone] Surgical History Surgery Date Site/Laterality Comments OTHER [...] MRI bx BREAST BIOPSY 1997 Left PROCEDURE: ID BX BREAST W/DEVICE 1ST LESION ULTRASOUND GUID; [...] V28) 2014 DX:Malignant melanoma of louisa ast ([facility]); COMMENT: rt Osteoporosis DX:Osteoporosis Diarrhea DX:Diarrhea Fecal [...] 03/18/2025 9:00 AM EDT Appointment Radiology Department [address] [address] Health Maintenance Due Date Last Done Comments [...] should be classified as having osteoporosis. The [facility] Department of Internal Medicine recommends using National [...] Gordon should beclassified as having osteoporosis. The [facility] Department of Internal Medicine recommendsusing National Osteoporosis [...] Relevant to Health Maintenance Insurance Care Teams Chief Technician Relationship Specialty Start Date End Date Lena Tracey MD [address] [place] [address] PCP - General Internal Medicine 11/20/24
--- OUTSIDE RECORDS SUMMARY | 2025-03-05 13:31 | XMS_ITS | Clinical Summary ---
Author Organization [facility] Address [address] [place] [address] Phone Care Team Providers Care Incendiaries Supervisor Name Role Phone Lena Boateng MD Primary Care Provider Allergies Active Allergy Reactions Criticality Noted Date [...] topic Medical Devices Not on file Insurance [facility] [place] [address] [place] [address] [address] [place] [address] HMO Care Teams Incendiaries Supervisor Relationship Specialty Start Date End Date Lena Boateng MD PCP - General Internal Medicine 11/16/24 Additional Source Comments The information contained in this document represents components of the legal health record. It is not the complete legal health record.[facility]
== END 2025-03-04 11:36 | disposition home or self-care (01) ==
LOC: HO.HOSX 11:35
PROVIDERS: Visit Provider Orthopaedic Surgery
DX: M25.562 Pain in left knee (principal); M54.50 Low back pain, unspecified; R26.89 Other abnormalities of gait and mobility
CPT/HCPCS: 73562

== ENCOUNTER 2025-03-17 10:44 | Outpatient (AMB) | payer OTHER, SELFPAY ==
--- NOTE | 2025-03-17 10:47 | A.OFFVIS_ITS ---
Vital Signs 03/17/25 10:53 Height 5 ft 4 in Weight 136 lb 14.513 oz BMI 23.5 BP 100/70 Blood Pressure Location Rt brachial Position Sitting Pulse 101 H Pulse Source Pulse Oximeter Pulse Oximetry (%) 96 Oxygen Delivery Method Room Air Intake Visit Reasons: Psoriasis/New Patient Internal Ref Intake Note: Patient presets today for psoriatic arthritis Accompanied by: Spouse Allergies cat dander (cats) Adverse Reaction (Verified 03/17/25 10:53) Sneezing aromacin Allergy (Unknown, Uncoded 01/21/25 09:37) affects liver function horses Adverse Reaction (Uncoded 03/04/25 08:10) Sneezing HPI HPI Psoriasis/New Patient Internal Ref: Details: New patient visit. She has been referred for evaluation of osteoarthritis and hand pain. She has history of psoriasis and is concerned about psoriatic arthritis. She has pain and swelling intermittently in bilateral 2-3 PIPs and DIPs. Uses ibuprofen 400mg PRN joint pain with relief. Uses diclofenac gel daily with benefit on her knees. She recently saw orthopedic surgeon in February. She went to PT years ago for balance issues. She had benefit with PT. She is not compliant with PT exercises at home. R buttocks pain for years. Her main pain is at night. She has pain when she starts her walk in the morning, and it eventually subsides. Sleeps on left side. PsO on extremities treated with topical clobetasol. No hx dacyltitis, iris, IBD. No family hx of PsO, PsA, IBD. Family history osteoarthritis. No family history of rheumatological disease. 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 She drinks weekly. Does not smoke. Medication list of medical history reviewed with patient. [facility] Medical History History of breast cancer Family History Paternal Aunt Alcoholism Other FH: mental illness Social History Housing: House Alcohol intake: current Patient Tobacco Use Status: Former Tobacco user e-Cigarette/Vaping Use: Never Used Second Hand Smoke Exposure: No service: No Cognitive needs: Yes (forgetful) Hearing needs: No Vision needs: Yes (glasses) Physical Exam Exam Exam: General: Comfortable CVS: RRR Respiratory: clear to auscultation bilaterally. Good respiratory effort Skin: No lesions seen MSK: Tender to palpate right 2nd PIP. No synovitis. She has Heberden nodes and Livier's nodes. Squaring of bilateral CMCs. She is unable to make a full fist with both of her hands. Shoulder abduction 170 degrees. She has good internal external rotation of bilateral shoulders. Tender to palpate right trochanteric bursa. No tenderness of groin region. Normal range of motion of bilateral hips and knees. She has tenderness along right medial joint line of knee. No knee effusion. Positive ANUJA right side. No SI joint tenderness. No spinous process tenderness of cervical spine, thoracic spine or lumbar spine. Normal range of motion of cervical spine. Normal lumbar flexion. She has bilateral hallux valgus deformity with tenderness of bilateral 1st MTPs. When she gets up from seated position to standing position her whole body sways for a few seconds until she feels back to normal and is able to maintain a steady stance. Vital Signs: Last Vital Signs Pulse 101 H 03/17/25 10:53 BP 100/70 03/17/25 10:53 Pulse Ox 96 03/17/25 10:53 Oxygen Delivery Method Room Air 03/17/25 10:53 BMI result Body Mass Index 23.5 Results Reviewed Results Reviewed: Labs in [facility] reviewed X-rays personally reviewed in [facility]. Assessment & Plan Assessment & Plan (1) Erosive osteoarthritis of hands, bilateral: Comment: Pain is controlled with Tylenol and diclofenac gel. We discussed diagnosis and management with incorporating occupational therapy to improve range of motion and strength. Code(s): M15.4 - Erosive (osteo)arthritis Category: Medical Plan: OT ordered She will continue to use Tylenol 1300 mg b.i.d. She was informed that she can use diclofenac gel applied to affected area q.i.d. PRN Return to clinic in 4 months (2) Trochanteric bursitis, right hip: Comment: Discussed diagnosis and management Code(s): M70.61 - Trochanteric bursitis, right hip Category: Medical Plan: stop Ibuprofen Start meloxicam 15 mg daily Creatinine ordered for baseline PT ordered for lower extremity strengthening and gait training Return to clinic in 4 months. If pain worsens or does not improve with above, I will consider cortisone injection (3) Psoriasis: Comment: Controlled with topical clobetasol. Patient was reassured that she does not have clinical signs of osteoarthritis. I have reviewed her hand x-rays, which reveal radiographic findings of erosive osteoarthritis. We discussed clinical signs to monitor for the development of psoriatic arthritis. Code(s): L40.9 - Psoriasis, unspecified Category: Medical Plan: No further rheumatological workup is indicated at this time She has been referred to occupational therapy to improve hand strength and mobility Plan She complains that she is unbalanced and has had recurrent falls. With history of osteoporosis she is high-risk for fractures. She will be seeing Neurology in June. 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 I have referred her to PT for gait training. Orders: Orders Creatinine Today M15.4 - Erosive (osteo)arthritis, Z79.1 - exterminator helper (current) use of non-steroidal anti-inflammatories (NSAID) Aspartate Amino Transferase Today M15.4 - Erosive (osteo)arthritis, Z79.1 - exterminator helper (current) use of non-steroidal anti-inflammatories (NSAID) PT Evaluation and Treatment Today M70.61 - Trochanteric bursitis, right hip, R26.89 - Other abnormalities of gait and mobility OT Evaluation and Treatment Today M15.4 - Erosive (osteo)arthritis Alanine Aminotransferase Today M15.4 - Erosive (osteo)arthritis, Z79.1 - correction (current) use of non-steroidal anti-inflammatories (NSAID) Medications: New meloxicam 15 mg PO DAILY 90 tabs 1RF Coding Level of Care Code New Pt Level 4 (07764) Diagnoses Erosive osteoarthritis of hands, bilateral M15.4 Trochanteric bursitis, right hip M70.61 Psoriasis L40.9
[2025-03-17 10:53] VITALS: BP 100/70; PULSE 101; O2SAT 96; BMI 23.5
== END 2025-03-17 11:57 | disposition home or self-care (01) ==
PROVIDERS: PCP Physician Assistant; Visit Provider Internal Medicine Rheumatology
DX: M15.4 Erosive (osteo)arthritis (principal); M70.61 Trochanteric bursitis, right hip; L40.9 Psoriasis, unspecified
CPT/HCPCS: 99204

== ENCOUNTER 2025-03-17 10:44 | Outpatient (REF) | payer OTHER, SELFPAY ==
[2025-03-17 18:59] LABS: Alanine Aminotransferase 24 U/L (0-31); Aspartate Amino Transferase 26 U/L (5-31); Estimated Glomerular Filt Rate > 60
== END 2025-03-17 10:45 | disposition home or self-care (01) ==
LOC: HO.HKASLDS 10:44
PROVIDERS: PCP Physician Assistant; Visit Provider Internal Medicine Rheumatology
DX: L40.9 Psoriasis, unspecified (principal); M70.61 Trochanteric bursitis, right hip; M15.4 Erosive (osteo)arthritis; Z79.1 Long term (current) use of non-steroidal anti-inflammatories (NSAID)
CPT/HCPCS: 36415; 82565; 84450; 84460

== ENCOUNTER 2025-03-26 08:08 | Outpatient (REF) | payer OTHER, SELFPAY ==
--- NOTE | ~2025-03-26 | XR_ITS ---
CLINICAL HISTORY: M79.643 - Pain in unspecified hand 6 view left hand Comparison: None provided Findings: No fractures or dislocations. There are changes of osteoarthritis involving multiple interphalangeal joints and 1st carpometacarpal and scaphoid side midcarpal row.. No erosions. No radiopaque foreign body. IMPRESSION: 1. No acute findings This document has been electronically signed by: Colin Hernandez MD on 03/28/2025 09:46:16
== END 2025-03-26 08:09 | disposition home or self-care (01) ==
LOC: HO.HOSX 08:08
DX: M15.4 Erosive (osteo)arthritis (principal); Z79.1 Long term (current) use of non-steroidal anti-inflammatories (NSAID)
CPT/HCPCS: 73130

== ENCOUNTER 2025-03-26 08:13 | Outpatient (AMB) | payer OTHER, SELFPAY ==
--- NOTE | 2025-03-26 08:27 | A.OFFVIS_ITS ---
Vital Signs 03/26/25 08:37 Height 5 ft 4 in Weight 136 lb BMI 23.3 Handedness Right Intake Visit Reasons: new prob-Bilat hand pain Intake Note: Lena is a 79 year old right hand dominant female who presents today for a New Problem Visit complaining of Bilateral Hand Pain, right greater than left. Per referring provider, pain is primarily at the knuckles with stiffness of the hands and joints. She was [facility] evaluated [facility] but she is unsure of their diagnosis, Psoriatic Arthritis vs. Rheumatoid Arthritis. Patient evaluated by [facility] on 03/17/25, diagnosed with erosive osteoarthritis of hands, bilateral. She started occupational therapy this week and says they applied tape however it fell off. Says they also fitted her for a custom brace and they gave her a tool to use with her writing utensils. She says the tool makes a big difference in her writing. She has 3 more OT visit. These symptoms are not daily. If there is a day she is overusing her hands she says this is when her pain increases. Lifting, squeezing, turning things on and off, brushing teeth all become difficult for her. She reports she started using a stylus for texting and this helps. She takes meloxicam 15 mg PRN and says it takes the edge off. Accompanied by: Spouse Allergies cat dander (cats) Adverse Reaction (Verified 03/26/25 08:42) Sneezing aromacin Allergy (Unknown, Uncoded 03/26/25 08:42) affects liver function horses Adverse Reaction (Uncoded 03/26/25 08:42) Sneezing HPI HPI new prob-Bilat hand pain: Details: Lena is a 79 year old right hand dominant female who presents today for a New Problem Visit complaining of Bilateral Hand Pain, right greater than left. Per referring provider, pain is primarily at the knuckles with stiffness of the hands and joints. She was previously evaluated at [facility] but she is unsure of their diagnosis, Psoriatic Arthritis vs. Rheumatoid Arthritis. Patient evaluated by [facility] Rheumatology on 03/17/25, diagnosed with erosive osteoarthritis of hands, bilateral. Denies any significant pain at the base of bilateral thumbs, reports that most of her pain is located in the joints of the 2nd through 5th digits of bilateral hands She started occupational therapy this week and says they applied tape however it fell off. Says they also fitted her for a custom brace and they gave her a tool to use with her writing utensils. She says the tool makes a big difference in her writing. She has 3 more OT visit. These symptoms are not daily. If there is a day she is overusing her hands she says this is when her pain increases. Lifting, squeezing, turning things on and off, brushing teeth all become difficult for her. She reports she started using a stylus for texting and this helps. She takes meloxicam 15 mg PRN and says it takes the edge off. [facility] Medical History History of breast cancer Family History Paternal Aunt Alcoholism Other FH: mental illness Social History Housing: House Alcohol intake: current Patient Tobacco Use Status: Former Tobacco user e-Cigarette/Vaping Use: Never Used Second Hand Smoke Exposure: No service: No Cognitive needs: Yes (forgetful) Hearing needs: No Vision needs: Yes (glasses) Review of Systems Const All systems reviewed & are unremarkable except as noted in HPI and below Physical Exam Vital Signs: BMI result Body Mass Index 23.3 Extrem Other: Patient is alert, oriented, and in no acute distress. Neuro: Normal sensation of the tips of all digits of the bilateral hand at this time Vascular: Cap refill brisk Pain: Patient reports discomfort in the PIP and D IP joints of the 2nd through 5th digits of bilateral hands when making a closed fist No tenderness to palpation of bilateral hands or the digits of bilateral hands ROM: Patient is able to make a closed fist and extend all digits of bilateral hands fully, but reports significant discomfort particularly when making a closed fist in 2nd through 5th digits of bilateral hands Skin: No lacerations or abrasions. General: Noted Heberden's nodes of the D IP joints of 2nd through 5th digits of bilateral hands No ecchymosis, erythema, or evidence of infection. Psych: Appears grossly normal Affect normal Attitude cooperative Results Reviewed Results Reviewed: X-rays obtained in the office today and independently reviewed by me, Dale Ridley PA-C, demonstrate severe osteoarthritis of bilateral basal joints, moderate osteoarthritis of the MCP and PIP joints of 2nd through 5th digits of bilateral hands, and severe osteoarthritis of the D IP joints of the digits. Assessment & Plan Assessment & Plan (1) Erosive osteoarthritis of hands, bilateral: Comment: Pain is controlled with Tylenol and diclofenac gel. We discussed diagnosis and management with incorporating occupational therapy to improve range of motion and strength. Code(s): M15.4 - Erosive (osteo)arthritis Category: Medical Plan 1. Osteoarthritis of bilateral hands Patient is educated about this condition Patient is educated about the typical treatment course At this time, as the patient is not experiencing any significant discomfort in the bilateral basal joints, I do not feel that injections are indicated at this time Patient has also been attending occupational therapy, and this has been helping significantly, so I feel that she should continue with this and conservative pain management measures Patient is educated that injections into the PIP or D IP joints of the digits of the hand are very difficult, and have a high-risk of being ineffective than injections into the basal joint Patient is also informed that if she does begin to experience pain that she deems unbearable in the D IP joints, she can call to book an appointment to discuss arthrodesis of the joints Patient understands this and is amenable to this plan Patient is also educated on conservative pain management measures, such as rest, ice, elevation, Tylenol and ibuprofen as needed, and turmeric supplementation as a natural anti-inflammatory Follow-up as needed with any acute concerns Orders: Orders XR Hand Bilat min 3v Today M79.643 - Pain in unspecified hand Coding Level of Care Code Est Pt Level 3 (29762) Diagnoses Erosive osteoarthritis of hands, bilateral M15.4
[2025-03-26 08:37] VITALS: BMI 23.3
== END 2025-03-26 09:04 | disposition home or self-care (01) ==
LOC: HO.HOS 08:14
PROVIDERS: PCP Physician Assistant
DX: M15.4 Erosive (osteo)arthritis (principal)
CPT/HCPCS: 99213

== ENCOUNTER → 2025-03-26 08:17 | Outpatient (BNV) | payer OTHER, SELFPAY | PROVIDERS: Visit Provider Specialist | DX: M79.641 Pain in right hand (principal); M79.642 Pain in left hand | CPT/HCPCS: 73130 ==

== ENCOUNTER → 2025-04-02 07:51 | Outpatient (BNV) | payer OTHER, SELFPAY | PROVIDERS: PCP Physician Assistant; Visit Provider Radiology Diagnostic Radiology | DX: M47.815 Spondylosis without myelopathy or radiculopathy, thoracolumbar region (principal); M48.07 Spinal stenosis, lumbosacral region | CPT/HCPCS: 72148 ==

== ENCOUNTER 2025-04-02 08:03 | Outpatient (REF) | payer OTHER, SELFPAY ==
--- NOTE | ~2025-04-02 | MR_ITS ---
EXAMINATION: MR LUMBAR SPINE WITHOUT CONTRAST CLINICAL INFORMATION: M 54.50. Low back pain, unspecified. COMPARISON: None available. TECHNIQUE: MRI of the lumbar spine was obtained using routine sequences without contrast. FINDINGS: Last rib-bearing vertebra labeled T12. No bone marrow STIR signal abnormality. There is a compression fracture deformity representing 50-60% volume loss of the vertebral body of T12 resulting in 3 mm retropulsion of the posterior superior aspect into the ventral central spinal canal. Multilevel marginal osteophyte formation and disc desiccation. Modic type II endplate changes at L4-5. Probable vacuum phenomenon at L3-4, L4-5 and L5-S1 levels. Grade 1 anterolisthesis L3-4 and L5-S1. S-shaped curvature of the thoracolumbar spine with a dextroconvex curvature apex at L2 and levoconvex curvature apex at L3-4. Conus medullaris ends at superior endplate of L1 with normal signal. T11-12: Retropulsion into the ventral aspect of the thecal sac without compression upon neural elements. T12-L1: Broad-based disc bulging. Facet joint and ligamentum flavum hypertrophy producing the AP diameter of the thecal sac. Bilateral neuroforamina narrowing. L1-2: Broad-based disc bulging. Facet joint and ligamentum flavum hypertrophy. Reduced AP diameter of the thecal sac and neuroforamina. L2-3: Broad-based disc bulging. Facet joint and ligamentum flavum hypertrophy. Reduced AP diameter of the thecal sac and bilateral neuroforamina narrowing, left greater than the right side. L3-4: Broad-based disc bulging. Facet joint and ligamentum flavum hypertrophy resulting in CSF effacement of the thecal sac and compression upon neural elements. Bilateral neuroforamina narrowing, left greater than the right side. L4-5: Broad-based disc bulging. Facet joint and ligamentum flavum hypertrophy resulting in CSF effacement of thecal sac central spinal canal and bilateral neuroforamina stenosis encroaching posterior compressing the neural elements. L5-S1: Broad-based disc bulging. Facet joint and ligamentum flavum hypertrophy resulting in central spinal canal and bilateral neuroforamina stenosis. Fatty atrophy of the lower lumbar muscles from L4-5. No prevertebral compartment hematoma, mass or fluid collection. Asymmetric volume loss of the right psoas muscle.. MR/MR lumbar spine wo con IMPRESSION: Old compression fracture deformity representing 50-60% volume loss and 3 mm retropulsion upon central canal and T12. Multilevel thoracolumbar spondylosis and scoliosis resulting in grade 1 anterolisthesis L3-4 and L5-S1 and central spinal canal and bilateral neuroforamina stenosis from L3-4 to L5-S1 likely compressing the neural elements. Electronically signed by: Cesar Campbell MD 04/02/2025 09:08 AM EDT
--- OUTSIDE RECORDS SUMMARY | 2025-04-02 08:18 | XMS_ITS | Clinical Summary ---
Author Organization [facility] Address [address] [place] [id number] Care Team Providers Care Door Clamper Name Role Phone Pcp, No Primary Care [...] Team Description 03/02/2025 1:00 PM EDT Consult [facility] [address] [id number] Clement Sotelo MD Primary osteoarthritis involving multiple joints (Primary Dx); Imbalance; Encounter for long-term (current) use of NSAIDs 03/02/2025 Travel 01/26/2025 Transcribe Orders [facility] [address] [id number] Perla Nuñez PA Erosive osteoarthritis [...] es 65 and older) 10/30/2011 RSV Vaccine 50 years and old er and Patients (1 - 1-dose 75+ series) 2021 Influenza Vaccine 01/08/2025 COVID-19 Vaccine ( - 2023-2 5 season) 2025 Hepatitis B Vaccines Aged Out No long er eligible based on patient's age to complete this topic Insurance Care Teams Door Clamper Relationship Specialty Start Date End Date Pcp, No PCP - General General Medicine 02/02/25
--- OUTSIDE RECORDS SUMMARY | 2025-04-02 08:18 | XMS_ITS | Encounter Summary ---
Author Organization [facility] Address [address] [place] [id number] Phone Care Team Providers Care Treatment Specialist Name Role Phone Nahed Lopez DO Primary Care Provider [phone] Lena Boateng MD Primary Care Provider [phone] Reason for Referral * Outpatient Procedure - Closed Specialty Diagnoses / Procedures Referred By Myron ely Referred To Contact Radiology Diagnoses Weakness Procedures US Carotid Duplex Complete (Bilateral) Jaime Roth MD Phone: tel: fax: [email or web address] Referral ID Status Reason Start Date Expiration Date Visits Re quested Visits Authorized [id number] Closed 12/18/2021 12/18/2022 1 1 Encounter Details Date Type Department Care Team (Latest Contact Info) Description 12/18/2021 Transcribe Orders Virtual Department [address] [place] [id number] Jaime Roth MD [address] [place] [address], [address] [place] [address] [email or web address] Weakness (Primary Dx) Social History Tobacco [...] fatigue documented in this encounter Care Teams Treatment Specialist Relationship Specialty Start Date End Date Nahed Lopez DO [address] [place] [address] PCP - General Family Medicine 12/18/21 11/15/24 Lena Boateng MD [address] [place] [address] PCP - General Internal Medicine 11/16/24 documented as of this encounter Additional Source Comments The information contained in this document represents components of the legal health record. It is not the complete legal health record.[facility]
--- OUTSIDE RECORDS SUMMARY | 2025-04-02 08:18 | XMS_ITS | Clinical Summary ---
Author Organization [address] Address [address] [place] [address] Phone Care Team Providers Care Bread Wrapper Name Role Phone Sloan Tracey MD Primary Care Provider [phone] Encounters Date Type Department Care Team Description 03/18/2025 8:44 AM EDT - 03/18/2025 11:59 PM EDT Hospital Encounter Radiology Department - [address] [phone] Encounter for screening mammogram for breast cancer Discharge Disposition: Home or Self Care from Last 3 Months Surgical History Surgery Date Site/Laterality Comments OTHER [...] MRI bx BREAST BIOPSY 1997 Left PROCEDURE: ME BX BREAST W/DEVICE 1ST LESION ULTRASOUND GUID; [...] V28) 2014 DX:Malignant melanoma of louisa ast ([facility]); COMMENT: rt Osteoporosis DX:Osteoporosis Diarrhea DX:Diarrhea Fecal incontinence DX:Fecal inco ntinence Fecal urgency DX:Fecal urgency Family history of colon canc er in mother DX:Family history of colon c ancer in mother Covid DX:COVID Colitis DX:Colitis Fecal urgency DX:Fecal urgency Sore throat DX:Sore throat History of colitis DX:History of colitis Family History Medical History Relation Name Comments Prostate cancer Brother 1 Jose Kristin Arthritis Brother 2 Iban Foster osteo Prostate [...] problem, prostrate cancer Maternal Grandfather [place] christian g Maternal Grandmother [place] christian g Mother dementia 85, co rubén cancer, dm Mother's side m cousin 30s Paternal Grandfather (Age 60s) H eart disease, [...] = 0.6 oz pur e alcohol) Comments No Sex and Gender Information Value Date Recorded Sex Assigned at Not on file Legal Sex Female 6:55 PM EST Gender Identity Not on file Sexual Orientation Not on file Obstetrics History Para Term AB IAB SAB Ectopic Multiple Livin g Live Births 1 [birth year] 10 1 Date Outcome GA Total Labor Labor/2nd/3rd Weight Sex Type Anes PTL Silke A1 A5 Name Clin Term Last Filed Vital Signs Vital Sign Reading [...] 04/09/2024 9:30 AM EDT Plan of Treatment Health Maintenance Due Date Last Done Comments Colorectal Cancer Screening: Colonoscopy 1945 Cholesterol Screening (Lipid Panel) 05/19/2022 Falls Risk Assessment 05/19/2022 Hepatitis C Screening 05/19/2022 Social Influencers of Health Screening 05/19/2022 Depression Screening 06/10/2024 COVID-19 Vaccine (9 - Pfizer risk 2023- season) 2025 02/28/2024, 02/21/2024, 04/04/2023, Additional history exists Influenza Vaccine (#1) 2025 , 03/06/2023, 02/28/2022, Additional history exists DTaP,Tdap,and Td Vaccines (4 - Td or Tdap) 01/05/2030 01/06/2020, 09/13/2009, 08/20/2000 Osteoporosis Screening (Bone Density Screening) 10/21/2033 10/22/2023, 10/22/2023, 08/16/2022, Additional history exists Pneumococcal Vaccine: 50+ Years Completed 10/25/2015, 05/12/2012 Zoster Vaccines Completed 12/07/2020, 09/09, 01/17/2012 RSV Immunization Adult Patients Completed 04/04/2023 HIB Vaccines Aged Out No longer eligi [...] Procedure Name Priority Date/Time Associated Diagnosis Comments MG MAMMO DIGITAL SCREENING W SANTOS BILAT Routine 03/18/2025 9:06 AM EDT Encounter for screening mammogram for breast cancer DXA BONE DENSITY STUDY 1+ SITS AXIAL SKEL Routine 10/22/2023 10:07 AM EDT Encounter for general adult medical examination without abnormal findings from Last 3 Months or Most Recently Relevant to Health Maintenance Results * MG Mammo Digital Screening w Santos bilat (03/18/2025 9:06 AM EDT) Anatomical Region Laterality Modality Breast Bilateral Mammography 03/18/2025 7:44 PM EDT Impressions 03/18/2025 7:49 PM EDT No mammographic evidence of malignancy. BREAST DENSITY: C - The breasts are heterogeneously dense which may obscure small masses. BI-RADS CATEGORY: 2 - BENIGN RECOMMENDATION: Screening bilateral mammogram is recommended in 1 year. MAMMO LOCATION: [facility], [address] [place] [address], [id number], . -------- FINAL REPORT -------- Dictated By: Bernice Martinez Dictated Date: 03/18/2025 19:44 ET Assigned Physician: Bernice Martinez Reviewed and Electronically Signed By: Bernice Martinez Signed Date: 03/18/2025 19:49 ET Workstation ID: [id number] Transcribed By: Self Edit Transcribed Date: 03/18/2025 19:44 ET Narrative 03/18/2025 7:49 PM EDT EXAM: Screening Mammogram CLINICAL: 79 years old, Female, routine annual exam. -History of right breast cancer in 2014 status post lumpectomy and radiation therapy. -History of left breast cancer in 1997 status post lumpectomy and radiation therapy. -History of a benign right MRI guided core biopsy on 01/30/2017. COMPARISON: 02/28/2024 and as far back as 02/07/2021 TECHNIQUE: Bilateral MLO and CC views were obtained digitally with 3-D mammogram (digital breast tomosynthesis). Computer-aided detection was utilized in evaluation of this exam (CAD). FINDINGS: Bilateral postoperative changes again noted. No new suspicious mass, architectural distortion, or suspicious calcifications. Procedure Note Bernice Martinez MD - 03/18/2025 EXAM: Screening Mammogram CLINICAL: 79 years old, Female, routine annual exam. -History of right breast cancer in 2014 status post lumpectomy andradiation therapy. -History of left breast cancer in 1998 status post lumpectomy andradiation therapy. -History of a benign right MRI guided core biopsy on 01/30/2017. COMPARISON: 02/28/2024 and as far back as 02/07/2021 TECHNIQUE: Bilateral MLO and CC views were obtained digitally with 3-Dmammogram (digital breast tomosynthesis). Computer-aided detection wasutilized in evaluation of this exam (CAD). FINDINGS: Bilateral postoperative changes again noted. No new suspicious mass,architectural distortion, or suspicious calcifications. IMPRESSION: No mammographic evidence of malignancy. BREAST DENSITY: C - The breasts are heterogeneously dense which mayobscure small masses. BI-RADS CATEGORY: 2 - BENIGN RECOMMENDATION: Screening bilateral mammogram is recommended in 1 year. MAMMO LOCATION: [facility], [address] [place] [address], [address], . -------- FINAL REPORT -------- Dictated By: Bernice Martinez Dictated Date: 03/18/2025 19:44 ET Assigned Physician: Bernice Martinez Reviewed and Electronically Signed By: Bernice Martinez Signed Date: 03/18/2025 19:49 ET Workstation ID: [id number] Transcribed By: Self Edit Transcribed Date: 03/18/2025 19:44 ET Sloan Tracey MD IMG BI PROCEDURES Final Result * DXA BONE DENSITY STUDY 1+ SITS [...] Based on the World Health Organization criteria, Sloan Gordon should be classified as having osteoporosis. The [facility] Department of Internal Medicine recommends [...] Based on the World Health Organization criteria, Sloan Gordon should beclassified as having osteoporosis. The [facility] Department of Internal Medicine recommendsusing [...] Most Recently Relevant to Health Maintenance [place] [address] [place] [address] Care Teams Bread Wrapper Relationship Specialty Start Date End Date Sloan Tracey MD [address] [place] [address] [address] [place] [address] PCP - General Internal Medicine 11/20/24
--- OUTSIDE RECORDS SUMMARY | 2025-04-02 08:19 | XMS_ITS | Clinical Summary ---
Author Organization [facility] Address [address] [place] [address] Phone Care Team Providers Care [employer] Rep Name Role Phone Lena Boateng MD Primary [...] topic Medical Devices Not on file Insurance [facility] [place] [address] [place] [id number] [facility] [address] [place] [id number] Care Teams [employer] Rep Relationship Specialty Start Date End Date Lena Boateng MD PCP - General Internal Medicine 11/16/24 Additional Source Comments The information contained in this document represents components of the legal health record. It is not the complete legal health record.[facility]
--- OUTSIDE RECORDS SUMMARY | 2025-04-02 08:19 | XMS_ITS | Clinical Summary ---
Author Organization [facility] Address [address] [place] [address] Care Team Providers Care Agent Telegrapher Name Role Phone None, Provider GEARCASE ASSEMBLER Primary Care Provider Unavaila ble Allergies No [...] ( - 2023- season) 2024 Care Teams Agent Telegrapher Relationship Specialty Start Date End Date None, Provider, GEARCASE ASSEMBLER PCP - General 01/25/17
== END 2025-04-02 08:04 | disposition home or self-care (01) ==
LOC: HO.MRI 08:03
PROVIDERS: PCP Physician Assistant; Visit Provider Orthopaedic Surgery
DX: M54.50 Low back pain, unspecified (principal)
CPT/HCPCS: 72148

== ENCOUNTER 2025-04-13 09:19 | Outpatient (REF) | payer OTHER, SELFPAY | END 2025-04-13 09:20 | disposition home or self-care (01) | LOC: HO.HOSX 09:19 | PROVIDERS: PCP Physician Assistant; Visit Provider Physician Assistant | DX: Z13.89 Encounter for screening for other disorder (principal) ==

== ENCOUNTER 2025-04-13 09:19 | Outpatient (AMB) | payer OTHER, SELFPAY ==
--- NOTE | 2025-04-13 09:27 | MHC.OFFVIS ---
Intake Visit Reasons: new prob-bilat hip pain Intake Note: Lena is a 79 year old female who presents today for a evaluation of her bilateral hip pain. Patient reports off and on pain for about a year. She notices that her right hip is worse than the left. Patient states that her pain is worse when she is not doing anything specific, walking long distance. Her pain is mainly near the glutes. Patient has tried Tylenol, meloxicam with relief. IMPRESSION: 1. No acute bony abnormalities in either hip. Accompanied by: Allergies cat dander (cats) Adverse Reaction (Verified 04/13/25 09:30) Sneezing aromacin Allergy (Unknown, Uncoded 03/26/25 08:42) affects liver function horses Adverse Reaction (Uncoded 03/26/25 08:42) Sneezing HPI HPI new prob-bilat hip pain: Details: Ms. Gordon is a 79-year-old female who presents to the office today for evaluation of bilateral hip pain. She denies any injury or trauma. Reports the pain has been waxing waning for years. She complains that her right hip is worse than her left. The pain is located in the buttocks region. She denies any groin pain. Pain worsens with standing or walking for long periods of time. She has tried Tylenol and meloxicam with relief. [facility] Medical History History of breast cancer Family History Paternal Aunt Alcoholism Other FH: mental illness Social History (Updated 04/13/25 @ 09:31 by lAise Cannon) Housing: House Alcohol intake: current Patient Tobacco Use Status: Former Tobacco user e-Cigarette/Vaping Use: Never Used Second Hand Smoke Exposure: No service: No Current occupational status: retired Current occupation: right hand dominant Cognitive needs: Yes (forgetful) Hearing needs: No Vision needs: Yes (glasses) Review of Systems Const All systems reviewed & are unremarkable except as noted in HPI and below Physical Exam Const General: cooperative, healthy appearing and no acute distress Resp Effort & Inspection: normal respiratory effort and able to speak in complete sentences Extrem Other: Right/Left hip: Normal to inspection. No ecchymosis, erythema, or edema. Full hip ROM in all planes with no reported groin pain. No tenderness to palpation over the greater trochanteric bursa. 5/5 strength with resisted hip flexion, knee extension, abduction, and abduction. Able to perform straight leg raise with reproduction of symptoms on the right lower extremity. NVI. Psych Appearance: grossly normal Mental Status: mental status grossly normal Attitude: cooperative Assessment & Plan Assessment & Plan (1) Low back pain: Code(s): M54.50 - Low back pain, unspecified Category: Medical Plan Ms. Gordon is a 79-year-old female who presents to the office today for evaluation of bilateral hip pain. She denies any injury or trauma. Reports the pain has been waxing waning for years. She complains that her right hip is worse than her left. The pain is located in the buttocks region. She denies any groin pain. Pain worsens with standing or walking for long periods of time. She has tried Tylenol and meloxicam with relief. While the office today, I discussed with the patient that her symptoms are likely stemming from a low back issue. She is denying any groin pain at this time. She does however have mild arthritic changes of bilateral hips on x-ray however the majority of her pain is located in the glutes. He has an appointment with Dr. Trujillo on 04/16/25 for evaluation of her low back. Recommendation is to continue care with Dr. Trujillo and follow up with Orthopedics p.r.n., sooner if needed. X-rays of the pelvis which were obtained while in the office today and were reviewed by me, Xiomara Capone PA-C, revealed arthritic changes bilateral hips. Orders: Orders XR pelvis 1-2V 04/13/25 M25.559 - Pain in unspecified hip Coding Level of Care Code Est Pt Level 3 (09365) Diagnoses Low back pain M54.50
--- OUTSIDE RECORDS SUMMARY | 2025-04-13 10:10 | XMS_ITS | Clinical Summary ---
Author Organization [facility] Address [address] [place] [address] Care Team Providers Care Coiled Tubing Supervisor Name Role Phone Pcp, No Primary Care [...] Team Description 03/02/2025 1:00 PM EDT Consult [facility] Rheumatology [address] [phone] Clement Sotelo MD Primary osteoarthritis involving multiple joints (Primary Dx); Imbalance; Encounter for long-term (current) use of NSAIDs 03/02/2025 Travel 01/26/2025 Transcribe Orders [facility]umatology [address] [phone] Perla Nuñez PA Erosive osteoarthritis [...] to complete this topic Insurance Care Teams Coiled Tubing Supervisor Relationship Specialty Start Date End Date Pcp, No PCP - General General Medicine 02/02/25
--- OUTSIDE RECORDS SUMMARY | 2025-04-13 10:10 | XMS_ITS | Clinical Summary ---
Author Organization [facility] Address [address] [place] [address] Care Team Providers Care Fashion Stylist Name Role Phone None, Provider ELECTROPLATER HELPER Primary Care Provider Unavaila ble Allergies No [...] ( - 2023- season) 2024 Care Teams Fashion Stylist Relationship Specialty Start Date End Date None, Provider, ELECTROPLATER HELPER PCP - General 01/25/17
--- OUTSIDE RECORDS SUMMARY | 2025-04-13 10:10 | XMS_ITS | Encounter Summary ---
Author Organization [facility] Address [address] [place] [address] Phone Care Team Providers Care Apparatus Cleaner Name Role Phone Nahed Lopez DO Primary Care Provider [phone] Lena Boateng MD Primary Care Provider [phone] Reason for Referral * Outpatient Procedure - Closed Specialty Diagnoses / Procedures Referred By Myron ely Referred To Contact Radiology Diagnoses Weakness Procedures US Carotid Duplex Complete (Bilateral) Jaime Roth MD Phone: tel: fax: [email or web address]:[email or web address] Referral ID Status Reason Start Date Expiration Date Visits Re quested Visits Authorized [id number] Closed 12/18/2021 12/18/2022 1 1 Encounter Details Date Type Department Care Team (Latest Contact Info) Description 12/18/2021 Transcribe Orders Virtual Department [address] [place] [address] Jaime Roth MD [address] [place] [address], [address] [place] [address] [email or web address] Weakness (Primary Dx) Social History Tobacco [...] fatigue documented in this encounter Care Teams Apparatus Cleaner Relationship Specialty Start Date End Date Nahed Lopez DO [address] [place] [address] PCP - General Family Medicine 12/18/21 11/15/24 Lena Boateng MD [address] [place] [address] PCP - General Internal Medicine 11/16/24 documented as of this encounter Additional Source Comments The information contained in this document represents components of the legal health record. It is not the complete legal health record.[facility]
--- OUTSIDE RECORDS SUMMARY | 2025-04-13 10:10 | XMS_ITS | Clinical Summary ---
Author Organization [address] Address [address] [place] [address] Phone Care Team Providers Care Appointment Clerk Name Role Phone Sloan Tracey MD Primary Care Provider [phone] Encounters Date Type Department Care Team Description 03/18/2025 8:44 AM EDT - 03/18/2025 11:59 PM EDT Hospital Encounter Radiology Department - [address] [phone] Encounter for screening mammogram for breast cancer [...] MRI bx BREAST BIOPSY 1997 Left PROCEDURE: SC BX BREAST W/DEVICE 1ST LESION ULTRASOUND GUID; [...] V28) 2014 DX:Malignant melanoma of louisa ast ([facility]); COMMENT: rt Osteoporosis DX:Osteoporosis Diarrhea DX:Diarrhea Fecal [...] is recommended in 1 year. MAMMO LOCATION: [facility], [address] [place] [address], [address], . -------- FINAL REPORT -------- Dictated By: Bernice Martinez Dictated Date: 03/18/2025 19:44 ET Assigned Physician: Bernice Martinez Reviewed and Electronically Signed By: Bernice Martinez Signed Date: 03/18/2025 19:49 ET Workstation ID: [id number] Transcribed By: Self Edit Transcribed Date: 03/18/2025 [...] is recommended in 1 year. MAMMO LOCATION: [facility], [address] [place] [address], [id number], . -------- FINAL REPORT -------- Dictated By: Bernice Martinez Dictated Date: 03/18/2025 19:44 ET Assigned Physician: Bernice Martinez Reviewed and Electronically Signed By: Bernice Martinez Signed Date: 03/18/2025 19:49 ET Workstation ID: [id number] Transcribed By: Self Edit Transcribed Date: 03/18/2025 [...] should be classified as having osteoporosis. The [facility] Department of Internal Medicine recommends using [...] Gordon should beclassified as having osteoporosis. The [facility] Department of Internal Medicine recommendsusing National [...] Most Recently Relevant to Health Maintenance [place] [address] [place] [address] Care Teams Appointment Clerk Relationship Specialty Start Date End Date Sloan Tracey MD [address] [place] [address] [address] [place] [address] PCP - General Internal Medicine 11/20/24
--- OUTSIDE RECORDS SUMMARY | 2025-04-13 10:10 | XMS_ITS | Clinical Summary ---
Author Organization [facility] Address [address] [place] [address] Phone Care Team Providers Care Regulatory Attorney Name Role Phone Lena Boateng MD Primary [...] topic Medical Devices Not on file Insurance [facility] [place], [place] [id number] [facility] [address] [place] [address] [facility] Care Teams Regulatory Attorney Relationship Specialty Start Date End Date Lena Boateng MD PCP - General Internal Medicine 11/16/24 Additional Source Comments The information contained in this document represents components of the legal health record. It is not the complete legal health record.[facility]
== END 2025-04-13 10:44 | disposition home or self-care (01) ==
LOC: HO.HOS 09:19
PROVIDERS: PCP Physician Assistant; Visit Provider Physician Assistant
DX: M54.50 Low back pain, unspecified (principal)
CPT/HCPCS: 99213

== ENCOUNTER 2025-04-14 11:14 | Outpatient (RCR) | payer OTHER, SELFPAY ==
--- NOTE | 2025-03-29 08:15 | MHC.OT.EP ---
[facility] Office [address] [facility] [address] [facility] [phone] F: [phone] F: [phone] Occupational Therapy Plan of Care Patient Name: Lena Gordon Date of Evaluation: 03/24/25 Diagnosis: OA in B hands Pain Location: Pain Score: 6 Pain Scale Used: Numeric (0 - 10) Aggravating Factors: Alleviating Factors: TYLENOL Assessment: Pt is a 79 yr old female who reports pain w/ use of her B hands. 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 She reports in the morning she is unable to make a fist but as the day progresses she can. She presents today w/ Bouchards/ herbedens nodes on her B digits. She would benefit from skilled OT therapy to help address her deficits and increase the B function of her hands Frequency and Duration: The patient will be seen 1 X A WEEK FOR 4 WEEKS Short Term Goals: SEE BELOW Wall Mirror Department Supervisor Goals: Pt will be complaint w/ jt protection techniques Pt will report 2/10 pain w/ active use of her R hand Pt will report increased ability to open jars using modifying behaviors Treatment Plan: Therapeutic Exercise Therapeutic Activity Home Exercise Program Splinting Patient Education Edema Control Ultrasound Paraffin Fluidotherapy MHP Cold Packs Joint Mobilization Soft Tissue Mobilization Kinesiotaping Electronically Signed By: Rufina Townsend OTR/L Please Sign and return to therapist. Thank you once again for your referral.
--- NOTE | 2025-04-14 13:44 | MHC.OT.DC ---
[facility] Office [address] [facility] [phone] F: [phone] F: [phone] Occupational Therapy Discharge Note Patient Name: Lena Gordon Provider: Everton Cohen Diagnosis: OA in B hands Date of Surgery: Date of Evaluation: 03/24/25 Date of Discharge: Treatments to Date: 4 Cancellations to Date: No Shows to Date: Discharge Status: Achieved Goals Improved Function Independent with HEP Discharge Summary: Pt tolerated therapy well today; we reviewed her HEP and jt. protection for d/charge today Lena was a pleasure to work with. Thank you for including me in her care! Electronically Signed By: Rufina Townsend OTR/L Reviewed/agree with student documentation: Therapist: Please Sign and return to therapist, thank you for your referral.
== END 2025-04-14 13:44 | disposition home or self-care (01) ==
LOC: HO.OT 11:14
PROVIDERS: PCP Physician Assistant; Visit Provider Internal Medicine Rheumatology
DX: M15.4 Erosive (osteo)arthritis (principal)
CPT/HCPCS: 97035; 97110; 97140; 97165; 97535

== ENCOUNTER 2025-04-16 10:18 | Outpatient (AMB) | payer OTHER, SELFPAY ==
--- NOTE | 2025-04-16 10:23 | A.OFFVIS_ITS ---
Vital Signs 04/16/25 10:31 Height 5 ft 4 in Weight 134 lb BMI 23.0 Intake Visit Reasons: SUPPORT STAFF- Right sided LBP/ MRI done 04/02/25 Intake Note: Lena is a 79 year old female who presents today as a new patient for her Right sided Lower back pain and MRI review 04/02/25. Patient was referred by [facility] family Medicine, 01/21/25. At today's visit she states that for the past 10 years she has had sporadic lower back pain that radiates into the right hip. She reports that she has tried home therapy but never tried physical therapy. Patient's noted that over five years ago she had injections with relief. Patient added that her lower back pain is very sporadic and her daily activities tend to flair up the pain when over doing it. She reports no pain or discomfort at today's visit. Allergies cat dander (cats) Adverse Reaction (Verified 04/13/25 09:30) Sneezing aromacin Allergy (Unknown, Uncoded 03/26/25 08:42) affects liver function horses Adverse Reaction (Uncoded 03/26/25 08:42) Sneezing Medication List - Last Reconciled 04/16/25 by Merle Kirby MD clobetasol 0.05% 1 appl topical BID PRN docusate sodium (Colace) 100 mg PO BID PRN 90 days hydroxyzine HCl 10 mg PO Q4H PRN meloxicam 15 mg PO DAILY venlafaxine ER 225 mg PO BEDTIME HPI Comments Details: Sporadic pain. Last time she had pain was 2 days ago, more right sided hip and hamstrings. They've been noticing balance issues for the past year. Few falls. Leans to either side, then shuffles your feet. Helps when she uses the walking stick. No numbness. Possible claudication by 1/4 miles, describes the legs are tired and she's off balance but no back pain. Positive grocery cart sign. Better with flatter surface. Last injections with Dr. Marvin, which was more back pain. No balance issues back then. Vertebral fracture 5 years ago, offered kyphoplasty but did not need it at that time. [facility] Medical History History of breast cancer Family History Paternal Aunt Alcoholism Other FH: mental illness Social History (Updated 04/13/25 @ 09:31 by Alise Cannon) Housing: House Alcohol intake: current Patient Tobacco Use Status: Former Tobacco user e-Cigarette/Vaping Use: Never Used Second Hand Smoke Exposure: No service: No Current occupational status: retired Current occupation: right hand dominant Cognitive needs: Yes (forgetful) Hearing needs: No Vision needs: Yes (glasses) Review of Systems Const All systems reviewed & are unremarkable except as noted in HPI and below Physical Exam Exam Exam: Constitutional: Patient appears to be in no acute distress, well nourished and well developed. Patient was appropriately conversant and oriented. Good historian. MSK: Torso and pelvis tilted to the right side. No pain with palpation over the lumbar area. Lumbar ROM was full. Bilateral hip, knee and ankle ROM WNL. No ligamentous laxity or crepitance. No increased effusion. Slump sit negative. Strength is 5/5 in all muscle groups tested. No increased tone noted. Neurological: Neurologic examination of the upper and lower extremities was nonfocal with inta ct sensation, muscle stretch reflexes and without focal motor deficits . Rodgers?s negative bilaterally. Babinski was down going bilaterally. Clonus was negative. Wide-based gait. Shuffling when she turns. Vital Signs: BMI result Body Mass Index 23.0 Results Reviewed Results Reviewed: I independently reviewed the results of the following: Lumbar spinal stenosis moderate-severe L3-4 down to L5-S1, with foraminal stenosis. Grade 1 spondylolisthesis L3-4. Chronic appearing compression fracture T12. Ordering Physician: Matty Casper MD Date of Service: 04/02/25 Procedure(s): MR lumbar spine wo con Accession Number(s): [id number] cc: Perla Nuñez; Matty Casper MD~ Reason for Exam: M54.50 - Low back pain, unspecified EXAMINATION: MR LUMBAR SPINE WITHOUT CONTRAST CLINICAL INFORMATION: M 54.50. Low back pain, unspecified. COMPARISON: None available. TECHNIQUE: MRI of the lumbar spine was obtained using routine sequences without contrast. FINDINGS: Last rib-bearing vertebra labeled T12. No bone marrow STIR signal abnormality. There is a compression fracture deformity representing 50-60% volume loss of the vertebral body of T12 resulting in 3 mm retropulsion of the posterior superior aspect into the ventral central spinal canal. Multilevel marginal osteophyte formation and disc desiccation. Modic type II endplate changes at L4-5. Probable vacuum phenomenon at L3-4, L4-5 and L5-S1 levels. Grade 1 anterolisthesis L3-4 and L5-S1. S-shaped curvature of the thoracolumbar spine with a dextroconvex curvature apex at L2 and levoconvex curvature apex at L3-4. Conus medullaris ends at superior endplate of L1 with normal signal. T11-12: Retropulsion into the ventral aspect of the thecal sac without compression upon neural elements. T12-L1: Broad-based disc bulging. Facet joint and ligamentum flavum hypertrophy producing the AP diameter of the thecal sac. Bilateral neuroforamina narrowing. L1-2: Broad-based disc bulging. Facet joint and ligamentum flavum hypertrophy. Reduced AP diameter of the thecal sac and neuroforamina. L2-3: Broad-based disc bulging. Facet joint and ligamentum flavum hypertrophy. Reduced AP diameter of the thecal sac and bilateral neuroforamina narrowing, left greater than the right side. L3-4: Broad-based disc bulging. Facet joint and ligamentum flavum hypertrophy resulting in CSF effacement of the thecal sac and compression upon neural elements. Bilateral neuroforamina narrowing, left greater than the right side. L4-5: Broad-based disc bulging. Facet joint and ligamentum flavum hypertrophy resulting in CSF effacement of thecal sac central spinal canal and bilateral neuroforamina stenosis encroaching posterior compressing the neural elements. L5-S1: Broad-based disc bulging. Facet joint and ligamentum flavum hypertrophy resulting in central spinal canal and bilateral neuroforamina stenosis. Fatty atrophy of the lower lumbar muscles from L4-5. No prevertebral compartment hematoma, mass or fluid collection. Asymmetric volume loss of the right psoas muscle.. MR/MR lumbar spine wo con IMPRESSION: Old compression fracture deformity representing 50-60% volume loss and 3 mm retropulsion upon central canal and T12. Multilevel thoracolumbar spondylosis and scoliosis resulting in grade 1 anterolisthesis L3-4 and L5-S1 and central spinal canal and bilateral neuroforamina stenosis from L3-4 to L5-S1 likely compressing the neural elements. Electronically signed by: Cesar Campbell MD 04/02/2025 09:08 AM EDT RP I reviewed records from the following: Ortho Assessment & Plan Assessment & Plan (1) Spinal stenosis, lumbar region with neurogenic claudication: Code(s): M48.062 - Spinal stenosis, lumbar region with neurogenic claudication Category: Medical (2) Shuffling gait: Code(s): R26.89 - Other abnormalities of gait and mobility Category: Medical Plan We looked at the MRI films together. 1. chronic healed T12 compression fracture, consistent with history from 5 years ago. NOT the reason for her gait. 2. lumbar spinal stenosis and foraminal stenosis, L3-4 down to L5-S1. No neurologic deficits or red flags today. Suspect the poor balance is sign of claudication. Positive grocery cart sign. From lumbar spinal stenosis. She does not have pain or any symptoms to indicate need for lumbar injections or even referral to neurospine, they agree. Discussed what to watch out for. I don't think she has parkinsons. Her shuffling gait appears more adaptive to prevent falls rather than true shuffling gait. No pill rolling type tremors. Sending to PT to help with her gait and balance. See if PT can help correct her gait. Assessment and plan discussed with patient, and patient was agreeable. All questions were answered thoroughly. Follow up 3 months. Merle Kirby MD, MESERET Board Certified, [place] Board of Physical Medicine and Rehabilitation (ABPMR) Board Certified, [place] Board of Electrodiagnostic Medicine (ABEM) Orders: Orders PT Evaluation and Treatment Today M48.062 - Spinal stenosis, lumbar region with neurogenic claudication, R26.89 - Other abnormalities of gait and mobility Coding Level of Care Code New Pt Level 4 (09129) Diagnoses Spinal stenosis, lumbar region with neurogenic claudication M48.062 Shuffling gait R26.89
[2025-04-16 10:31] VITALS: BMI 23.0
--- OUTSIDE RECORDS SUMMARY | 2025-04-16 12:09 | XMS_ITS | Clinical Summary ---
Author Organization [facility] Address [address] [place] [address] Care Team Providers Care Fur Examiner Name Role Phone Pcp, No Primary Care [...] Team Description 03/02/2025 1:00 PM EDT Consult [facility] Rheumatology [address] [phone] Clmeent Sotelo MD Primary osteoarthritis involving multiple joints (Primary Dx); Imbalance; Encounter for long-term (current) use of NSAIDs 03/02/2025 Travel from Last 3 Months Social History Tobacco [...] series) 2021 Influenza Vaccine 01/08/2025 COVID-19 Vaccine (1 - 2023-2 5 season) 2025 Hepatitis B Vaccines Aged Out No long er eligible based on patient's age to complete this topic Insurance [facility] Care Teams Fur Examiner Relationship Specialty Start Date End Date Pcp, No PCP - General General Medicine 02/02/25
--- OUTSIDE RECORDS SUMMARY | 2025-04-16 12:09 | XMS_ITS | Clinical Summary ---
Author Organization [address] Address [address] [place] [address] Phone Care Team Providers Care Certified Welder Name Role Phone Sloan Tracey MD Primary Care Provider Encounters Date Type Department Care Team Description 03/18/2025 8:44 AM EDT - 03/18/2025 11:59 PM EDT Hospital Encounter Radiology Department - [address] [phone] Encounter for screening mammogram for breast cancer [...] MRI bx BREAST BIOPSY 1997 Left PROCEDURE: VT BX BREAST W/DEVICE 1ST LESION ULTRASOUND GUID; [...] V28) 2014 DX:Malignant melanoma of louisa ast ([facility]); COMMENT: rt Osteoporosis DX:Osteoporosis Diarrhea [...] is recommended in 1 year. MAMMO LOCATION: [place] [facility], [address] [place] [address], [address], . -------- FINAL REPORT -------- Dictated By: Bernice Martinez Dictated Date: 03/18/2025 19:44 ET Assigned Physician: Bernice Martinez Reviewed and Electronically Signed By: Bernice Martinez Signed Date: 03/18/2025 19:49 ET Workstation ID: [id number] Transcribed By: Self Edit Transcribed Date: 03/18/2025 [...] is recommended in 1 year. MAMMO LOCATION: [place] [facility], [address] [place] [address], [address], . -------- FINAL REPORT -------- Dictated By: Bernice Martinez Dictated Date: 03/18/2025 19:44 ET Assigned Physician: Bernice Martinez Reviewed and Electronically Signed By: Bernice Martinez Signed Date: 03/18/2025 19:49 ET Workstation ID: [id number] Transcribed By: Self Edit Transcribed Date: 03/18/2025 [...] should be classified as having osteoporosis. The [facility] Department of Internal Medicine recommends [...] Gordon should beclassified as having osteoporosis. The [facility] Department of Internal Medicine recommendsusing [...] Most Recently Relevant to Health Maintenance [place] [address] [id number] Care Teams Certified Welder Relationship Specialty Start Date End Date Sloan Tracey MD [address] [place] [address] [address] [place] [address] PCP - General Internal Medicine 11/20/24
--- OUTSIDE RECORDS SUMMARY | 2025-04-16 12:09 | XMS_ITS | Encounter Summary ---
Author Organization [facility] Address [address] [place] [address] Phone Care Team Providers Care Customer Operations Representative Name Role Phone Nahed Lopez DO Primary Care Provider [phone] Lena Boateng MD Primary Care Provider [phone] Reason for Referral * Outpatient Procedure - Closed Specialty Diagnoses / Procedures Referred By Myron ely Referred To Contact Radiology Diagnoses Weakness Procedures US Carotid Duplex Complete (Bilateral) Jaime Roth MD Phone: tel: fax: mailto: Referral ID Status Reason Start Date Expiration Date Visits Re quested Visits Authorized [id number] Closed 12/18/2021 12/18/2022 1 1 Encounter Details Date Type Department Care Team (Latest Contact Info) Description 12/18/2021 Transcribe Orders Virtual Department [address] [place] [address] Jaime Roth MD [address] [place] [address], [address] [place] [address] [email or web address] Weakness (Primary Dx) Social History Tobacco [...] fatigue documented in this encounter Care Teams Customer Operations Representative Relationship Specialty Start Date End Date Nahed Lopez DO [address] [place] [address] PCP - General Family Medicine 12/18/21 11/15/24 Lena Boateng MD [address] [place] [address] PCP - General Internal Medicine 11/16/24 documented as of this encounter Additional Source Comments The information contained in this document represents components of the legal health record. It is not the complete legal health record.[facility]
--- OUTSIDE RECORDS SUMMARY | 2025-04-16 12:10 | XMS_ITS | Clinical Summary ---
Author Organization [facility] Address [address] [place] [address] Phone Care Team Providers Care Tool Salvage Worker Name Role Phone Lena Boateng MD Primary [...] patient's age to complete this topic IPV VACCINES Aged Out No longer eligi ble based on patient's age to complete this topic MENINGOCOCCAL VACCINES (ACWY) Aged Out No longer eligible based on patient's age to complete this topic MENINGOCOCCAL VACCINES (B) Aged Out N o longer eligible based on patient's age to complete this topic Medical Devices Not on file Insurance [address] [address] [place], [place] [id number] HMO [facility] HMO Care Teams Tool Salvage Worker Relationship Specialty Start Date End Date Lena Boateng MD PCP - General Internal Medicine 11/16/24 Additional Source Comments The information contained in this document represents components of the legal health record. It is not the complete legal health record.[facility]
== END 2025-04-16 11:26 | disposition home or self-care (01) ==
LOC: HO.HOS 10:19
PROVIDERS: Visit Provider Physical Medicine & Rehabilitation
DX: M48.062 Spinal stenosis, lumbar region with neurogenic claudication (principal); R26.89 Other abnormalities of gait and mobility
CPT/HCPCS: 99203

== ENCOUNTER → 2025-05-08 08:35 | Outpatient (BNV) | payer OTHER, SELFPAY | PROVIDERS: PCP Physician Assistant; Visit Provider Radiology Diagnostic Radiology | DX: G31.9 Degenerative disease of nervous system, unspecified (principal); R90.82 White matter disease, unspecified | CPT/HCPCS: 70551 ==

== ENCOUNTER 2025-05-08 08:38 | Outpatient (REF) | payer OTHER, SELFPAY ==
--- NOTE | ~2025-05-08 | MR_ITS ---
EXAMINATION: MR BRAIN WITHOUT CONTRAST CLINICAL INFORMATION: R 26.89 COMPARISON: None available. TECHNIQUE: MRI of the brain was obtained using routine sequences without contrast. FINDINGS: No restricted diffusion. No acute intracranial hemorrhage, mass effect, midline shift, hydrocephalus or herniation. Herbert-white matter differentiation is normal. Bilateral, confluent, deep periventricular white matter hyperintense T2 FLAIR signal involving centrum semiovale and rivera radiata. Multifocal patchy hyperintense T2 FLAIR signal,, bayron. Old lacunar infarct, distal ganglia. Prominence of the extra-axial CSF spaces cerebral sulci, ventricles involving mostly the frontotemporal lobes. Prominent right parieto-occipital sulcus. Flow-void signal within the main cerebral vessels is normal. Craniocervical junction is intact with normal position of the cerebellar tonsils. Sellar/suprasellar region demonstrates no signal abnormality or gross masses. MR/MR head/brain wo con IMPRESSION: No acute brain abnormality. White matter disease likely related to small vessel occlusive disease Bifrontal, bitemporal lobe atrophy. Electronically signed by: Cesar Campbell MD 05/10/2025 06:39 AM [place]
--- OUTSIDE RECORDS SUMMARY | 2025-05-08 08:42 | XMS_ITS | Encounter Summary ---
Author Organization [facility] Address [address] [place] [address] Phone Care Team Providers Care Pattern Scratcher Name Role Phone Nahed Lopez DO Primary Care Provider [phone] Lena Boateng MD Primary Care Provider [phone] Reason for Referral * Outpatient Procedure - Closed Specialty Diagnoses / Procedures Referred By Myron ely Referred To Contact Radiology Diagnoses Weakness Procedures US Carotid Duplex Complete (Bilateral) Jaime Roth MD Phone: tel: fax: mailto: Referral ID Status Reason Start Date Expiration Date Visits Re quested Visits Authorized [id number] Closed 12/18/2021 12/18/2022 1 1 Encounter Details Date Type Department Care Team (Latest Contact Info) Description 12/18/2021 Transcribe Orders Virtual Department [address] [place] [phone] Jaime Roth MD [address] [place] [address], [address] [place] [address] [email or web address] Weakness (Primary Dx) Social History Tobacco [...] fatigue documented in this encounter Care Teams Pattern Scratcher Relationship Specialty Start Date End Date Nahed Lopez DO [address] [place] [address] PCP - General Family Medicine 12/18/21 11/15/24 Lena Boateng MD [address] [place] [address] PCP - General Internal Medicine 11/16/24 documented as of this encounter Additional Source Comments The information contained in this document represents components of the legal health record. It is not the complete legal health record.[facility]
--- OUTSIDE RECORDS SUMMARY | 2025-05-08 08:42 | XMS_ITS | Clinical Summary ---
Author Organization [facility] Address [address] [place] [address] Care Team Providers Care Pyrometer Mechanic Name Role Phone Pcp, No Primary Care [...] Team Description 03/02/2025 1:00 PM EDT Consult [facility] Rheumatology [address] [phone] Clement Sotelo MD Primary osteoarthritis involving multiple joints (Primary Dx); Imbalance; Encounter for long-term (current) use of NSAIDs from Last 3 Months Social History Tobacco [...] patient's age to complete this topic Insurance [facility] Care Teams Pyrometer Mechanic Relationship Specialty Start Date End Date Pcp, No PCP - General General Medicine 02/02/25
--- OUTSIDE RECORDS SUMMARY | 2025-05-08 08:42 | XMS_ITS | Clinical Summary ---
Author Organization [address] Address [address] [place] [address] Phone Care Team Providers Care Teacher Vocational Training Name Role Phone Sloan Tracey MD Primary Care Provider [phone] Encounters Date Type Department Care Team Description 03/18/2025 8:44 AM EDT - 03/18/2025 11:59 PM EDT Hospital Encounter Radiology Department - [address] [phone] Encounter for screening mammogram for breast cancer [...] MRI bx BREAST BIOPSY 1997 Left PROCEDURE: AL BX BREAST W/DEVICE 1ST LESION ULTRASOUND GUID; [...] DX:Malignant melanoma of louisa ast ([facility]); COMMENT: rt Osteoporosis DX:Osteoporosis Diarrhea DX:Diarrhea Fecal [...] 06/10/2024 COVID-19 Vaccine ( season) 2025 02/28/2024, 02/21/2024, 04/04/2023, Additional [...] is recommended in 1 year. MAMMO LOCATION: [place] [facility], [address] [place] [address], [address], . -------- FINAL REPORT -------- Dictated By: Bernice Martinez Dictated Date: 03/18/2025 19:44 ET Assigned Physician: Bernice Martinez Reviewed and Electronically Signed By: Berince Martinez Signed Date: 03/18/2025 19:49 ET Workstation ID: [id number] Transcribed By: Self Edit Transcribed Date: 03/18/2025 [...] is recommended in 1 year. MAMMO LOCATION: [place] [facility], [address] [place] [address], [address], . -------- FINAL REPORT -------- Dictated By: Bernice Martinez Dictated Date: 03/18/2025 19:44 ET Assigned Physician: Bernice Martinez Reviewed and Electronically Signed By: Bernice Martinez Signed Date: 03/18/2025 19:49 ET Workstation ID: [id number] Transcribed By: Self Edit Transcribed Date: 03/18/2025 19:44 ET us Sloan Tracey MD IMG BI PROCEDURES Final [...] Most Recently Relevant to Health Maintenance [place] [address] [id number] Care Teams Teacher Vocational Training Relationship Specialty Start Date End Date Sloan Tracey MD [address] [place] [address] [address] [place] [address] PCP - General Internal Medicine 11/20/24
--- OUTSIDE RECORDS SUMMARY | 2025-05-08 08:42 | XMS_ITS | Clinical Summary ---
Author Organization [facility] Address [address] [place] [address] Phone Care Team Providers Care Fiber Optics Supervisor Name Role Phone Lena Boateng MD [...] topic Medical Devices Not on file Insurance [facility] [address] [place], [place] [id number] [address] [place] [address] HMO Care Teams Fiber Optics Supervisor Relationship Specialty Start Date End Date Lena Boateng MD PCP - General Internal Medicine 11/16/24 Additional Source Comments The information contained in this document represents components of the legal health record. It is not the complete legal health record.[facility]
--- OUTSIDE RECORDS SUMMARY | 2025-05-08 08:42 | XMS_ITS | Clinical Summary ---
Author Organization [facility] Address [address] [place] [address] Care Team Providers Care Twenty One Dealer Name Role Phone None, Provider JUNIOR BUYER Primary Care Provider Unavaila ble Allergies No [...] 75+ series) 2021 COVID-19 Vaccine ( - 2024-26 season) 2025 Care Teams Twenty One Dealer Relationship Specialty Start Date End Date None, Provider, JUNIOR BUYER PCP - General 01/25/17
== END 2025-05-08 08:39 | disposition home or self-care (01) ==
LOC: HO.MRI 08:38
PROVIDERS: PCP Physician Assistant; Visit Provider Physician Assistant
DX: R26.89 Other abnormalities of gait and mobility (principal)
CPT/HCPCS: 70551